=== PATIENT | female | born 1995 | race Caucasian/White ===

== ENCOUNTER 2020-08-11 16:17 | Emergency (ER) | payer MEDICAID, SELFPAY ==
[2020-08-11 17:27] VITALS: BP 109/53; PULSE 80; RESP 16; TEMP 36.8; O2SAT 98; BMI 29.2
--- NOTE | 2020-08-11 21:39 | ED_ITS ---
HPI - Female Genitourinary General Chief complaint: Abdominal Pain Stated complaint: ABD PAIN Time Seen by Provider: 08/11/20 21:09 Source: patient Mode of arrival: ambulatory Limitations: no limitations History of Present Illness HPI Narrative: This is a 25-year-old female who presents with 5 days of left lower pelvic/ quadrant abdominal discomfort that is nonradiating constant and sharp. She denies any alleviating or exacerbating maneuvers, denies fevers, chills, nausea, vomiting, diarrhea, urinary pain/burning/frequency, or vaginal discharge. She states she had an IUD placed approximately 5 years ago in [place] and was evaluated by her primary care provider today who stated that she was unable to find the strings of the IUD. Patient states she has not had a menstrual period since placement of the IUD but is sexually active. Related Data Allergies Allergy/AdvReac Type Severity Reaction Status Date / Time No Known Allergies Allergy Unverified 06/23/20 16:18 [No Known Allergies*] Review of Systems Review of Systems: Pertinent positives and negatives as stated in HPI and 10 point review of systems is otherwise negative. PMFSH Past Medical History Source: nursing notes reviewed Social History Social History Alcohol intake: never Smoking Status: Never smoker Use of substances other than those prescribed or required for medical reasons: No Advance Directives: No Advance Directives Information Provided: Yes Physical Exam Vital Signs: Vital Signs: Last Vital Signs Temp 98.2 F 08/11/20 17:27 Pulse 80 08/11/20 17:27 Resp 16 08/11/20 17:27 BP 109/53 L 08/11/20 17:27 Pulse Ox 98 08/11/20 17:27 Body Mass Index 29.2 VITAL SIGNS: Reviewed. GENERAL: Well developed, well nourished, in no acute distress. HEAD: Normocephalic/atraumatic, EYES: PERRLA, EOMI intact without pain, no nystagmus/pallor/icterus noted EARS: Ext canals without abnormality, TMs non-bulging and non-erythematous NOSE: Nares patent bilateral OROPHARYNX: no oral lesions noted, posterior pharynx clear and non-erythematous without noted tonsillar enlargement/erythema/exudates NECK: Supple, no adenopathy LUNGS: Normal breath sounds. No adventitious sounds or accessory muscle use. SpO2<98> CARDIOVASCULAR: Regular rate and rhythm without noted murmurs, no JVD or lower extremity edema. ABDOMEN: Soft, non-tender, non-distended with bowel sounds. No rigidity. No guarding. No palpable masses or hernias noted MUSCULOSKELETAL: No tenderness, deformities, or effusions noted on gross inspection. EXTREMITIES: No cyanosis, clubbing or edema. SKIN: Inspection of the skin reveals no rashes, ulcerations, jaundice, pallor, or petechiae. NEUROLOGIC: Alert and oriented x 4. Strength and sensation to light touch were grossly intact x 4. Course Course Course Narrative: This is a 25-year-old female with history and clinical presentation suggestive of possible renal colic, ovarian torsion, ovarian cyst, UTI, ectopic . On review of all investigations although there is mild leukocytosis of unclear significance there are no other acute abnormalities on either imaging or lab work, urinalysis to explain patient's presenting symptoms to include no history of cough or shortness of breath. All results and findings were discussed with the patient at bedside and she was encouraged to follow up with her primary care provider 1st thing in the morning for further evaluation. MDM - Female Genitourinary Lab Data Result diagrams: 08/11/20 22:03 08/11/20 22:47 Labs: Lab Results 08/11/20 08/11/20 08/11/20 Range/Units 22:03 22:03 22:47 WBC 13.6 H (4.8-10.8) X10*3/uL RBC 4.89 (4.20-5.50) X10*6/uL Hgb 13.3 (12.0-16.0) g/dl Hct 41.3 (37-47) % MCV 84.5 (80-98) fL MCH 27.2 (27.0-33.0) pg MCHC 32.2 (31.0-35.0) g/dl RDW 13.3 (11.0-16.0) % Plt Count 243 (160-400) X10*3/uL MPV 11.8 (9.4-12.3) fL Immature Gran % (Auto) 0.4 (0.0-0.4) % Neut % (Auto) 52.5 (45-73) % Lymph % (Auto) 39.5 (20-40) % [place] % (Auto) 4.3 (2-11) % Eos % (Auto) 2.7 (0-4) % Baso % (Auto) 0.6 (0-2) % Lymph # (Auto) 5.4 H (1.2-4.9) X10*3/uL [place] # (Auto) 0.6 (0.1-1.2) X10*3/uL Eos # (Auto) 0.4 (0.0-0.4) X10*3/uL Baso # (Auto) 0.1 (0.0-0.2) X10*3/uL Abs Immat Gran (auto) 0.06 H (0.00-0.03) X10*3/uL Absolute Neuts (auto) 7.2 (2.0-8.3) X10*3/uL Absolute Nucleated RBC 0.000 (0.0-0.012) X10*3/uL Nucleated RBC % (auto) 0.0 (0.0-0.2) /100WBC Sodium Cancelled 139 Potassium Cancelled 3.7 Chloride Cancelled 106 Carbon Dioxide Cancelled 24 Anion Gap Cancelled 13 BUN Cancelled 15 Creatinine Cancelled 0.73 Estim Creat Clear Calc Cancelled 121.8 Estimated GFR Cancelled > 60 Random Glucose Cancelled 76 Calcium Cancelled 8.6 Total Bilirubin Cancelled AST Cancelled ALT Cancelled Alkaline Phosphatase Cancelled Total Protein Cancelled Albumin Cancelled Urine Color Urine Appearance Urine pH (5.0-8.0) Ur Specific [place] (1.005-1.025) Urine Protein (NEG-TRACE) MG/DL Urine Glucose (UA) (NEG) MG/DL Urine Ketones (NEG) MG/DL Urine Blood (NEG) Urine Nitrite (NEG) Ur Leukocyte Esterase (NEG) Urine Test (NEGATIVE) 08/11/20 Range/Units 22:50 WBC (4.8-10.8) X10*3/uL RBC (4.20-5.50) X10*6/uL Hgb (12.0-16.0) g/dl Hct (37-47) % MCV (80-98) fL MCH (27.0-33.0) pg MCHC (31.0-35.0) g/dl RDW (11.0-16.0) % Plt Count (160-400) X10*3/uL MPV (9.4-12.3) fL Immature Gran % (Auto) (0.0-0.4) % Neut % (Auto) (45-73) % Lymph % (Auto) (20-40) % [place] % (Auto) (2-11) % Eos % (Auto) (0-4) % Baso % (Auto) (0-2) % Lymph # (Auto) (1.2-4.9) X10*3/uL [place] # (Auto) (0.1-1.2) X10*3/uL Eos # (Auto) (0.0-0.4) X10*3/uL Baso # (Auto) (0.0-0.2) X10*3/uL Abs Immat Gran (auto) (0.00-0.03) X10*3/uL Absolute Neuts (auto) (2.0-8.3) X10*3/uL Absolute Nucleated RBC (0.0-0.012) X10*3/uL Nucleated RBC % (auto) (0.0-0.2) /100WBC Sodium Potassium Chloride Carbon Dioxide Anion Gap BUN Creatinine Estim Creat Clear Calc Estimated GFR Random Glucose Calcium Total Bilirubin AST ALT Alkaline Phosphatase Total Protein Albumin Urine Color YELLOW Urine Appearance CLEAR Urine pH 6.5 (5.0-8.0) Ur Specific [place] 1.025 (1.005-1.025) Urine Protein NEG (NEG-TRACE) MG/DL Urine Glucose (UA) NEG (NEG) MG/DL Urine Ketones NEG (NEG) MG/DL Urine Blood NEG (NEG) Urine Nitrite NEG (NEG) Ur Leukocyte Esterase NEG (NEG) Urine Test NEGATIVE (NEGATIVE) Discharge Plan Discharge Clinical Impression: Abdominal discomfort Patient Disposition: Home, Self-Care Instructions: Kenneth (ED), Abdominal Pain (ED) Additional Instructions: 1. Tylenol 1000 mg, orally, every 6 hours as needed for pain control. Do not exceed 4000 mg within 24 hours. 2. Ibuprofen 400 mg, orally with milk or food, every 6 hours as needed for pain control. 3. Follow-up with the office of your primary care provider this morning for f urther workup and evaluation. The patient and/or family acknowledge understanding of results (as applicable), diagnosis, treatment plan, need for follow up, and symptoms that should prompt a return to the emergency room. Referrals: Physician,Unknown [Primary Care Provider] - 2 days ( For further evaluation your left lower quadrant / pelvic pain as there were no acute findings today in the emergency department)
[2020-08-11 22:09] LABS: MANUAL DIFF FLAG NO; Red Cell Distribution Width 13.3 % (11.0-16.0); SCAN SMEAR FLAG 1; WBC ABN SCTR 1
[2020-08-11 22:12] LABS: Basophils Absolute Auto 0.1 X10*3/uL (0.0-0.2); Basophils Percent Auto 0.6 % (0-2); Eosinophils Absolute Auto 0.4 X10*3/uL (0.0-0.4); Eosinophils Percent Auto 2.7 % (0-4); Hematocrit 41.3 % (37-47); Hemoglobin 13.3 g/dl (12.0-16.0); Imm Gran Abs Auto 0.06 X10*3/uL (0.00-0.03); Imm Gran Pct Auto 0.4 % (0.0-0.4); Lymphocytes Absolute Auto 5.4 X10*3/uL (1.2-4.9); Lymphocytes Percent Auto 39.5 % (20-40); Mean Corpuscular HGB Conc 32.2 g/dl (31.0-35.0); Mean Corpuscular Hemoglobin 27.2 pg (27.0-33.0); Mean Corpuscular Volume 84.5 fL (80-98); Mean Platelet Volume 11.8 fL (9.4-12.3); Monocytes Absolute Auto 0.6 X10*3/uL (0.1-1.2); Monocytes Percent Auto 4.3 % (2-11); Neutrophils Absolute Auto 7.2 X10*3/uL (2.0-8.3); Neutrophils Percent Auto 52.5 % (45-73); Platelet Count 243 X10*3/uL (160-400); Red Blood Count 4.89 X10*6/uL (4.20-5.50)
[2020-08-11] MEDS: Acetaminophen 325 MG TABLET 975 MG PO (22:18)
[2020-08-11 22:21] LABS: WBC ABN SCTR FOR CBC 1
[2020-08-11 22:23] LABS: White Blood Count 13.6 X10*3/uL (4.8-10.8)
[2020-08-11 23:04] LABS: Glucose Urine UA NEG (NEG); Leukocyte Esterase Urine NEG (NEG); Nitrite Urine NEG (NEG); PH 6.5 (5.0-8.0); Specific Gravity - Urine 1.025 (1.005-1.025); Urine Blood NEG (NEG); Urine Ketones NEG (NEG); Urine Protein NEG (NEG-TRACE)
[2020-08-11 23:06] LABS: Appearance Urine CLEAR; Color Urine YELLOW; UPreg QC Valid YES; Urine Pregnancy NEGATIVE (NEGATIVE)
[2020-08-11 23:12] LABS: Anion Gap 13 (12-20); Blood Urea Nitrogen 15 mg/dL (9-16); Calcium 8.6 mg/dL (8.4-10.2); Carbon Dioxide 24 mmol/L (22-29); Chloride 106 mmol/L (96-108); Creatinine Clr Calc Pharmacy 121.8; Estimated Glomerular Filt Rate > 60; Glucose Random 76 mg/dL (60-115); Potassium 3.7 mmol/l (3.3-5.1); Sodium 139 mmol/L (135-145)
--- NOTE | 2020-08-12 | US_ITS ---
EXAMINATIONS: ULTRASOUND PELVIC, COMPLETE AND DOPPLER INTERROGATION CLINICAL INFORMATION: Left-sided pain. COMPARISON: None. TECHNIQUE: Transabdominal and transvaginal imaging was performed. Transvaginal imaging was performed for further evaluation of the endometrium and adnexa. Doppler interrogation spectral analysis was performed. FINDINGS: The uterus is of normal size and echogenicity measuring 7.9 x 4.4 x 4.9 cm. A regular homogeneous endometrium is identified measuring 0.3 cm. IUD is in place in appropriate position. Both ovaries are of normal size and echogenicity. The right measures 4.4 x 3.0 x 3.1 cm for a volume of 21.4 cc. This measurement includes an approximately 2.2 cm simple right ovarian cyst. The left measures 3.1 x 1.9 x 2.3 cm for a volume of 7.1 cc. Normal arterial and venous blood flow is present bilaterally. There is a mzdai-no-dmsdfwhm amount of pelvic free fluid. US/US transvaginal IMPRESSION: No evidence for ovarian torsion. IUD in appropriate position. 2.2 cm simple right ovarian cyst.
--- NOTE | 2020-08-12 | US_ITS ---
EXAMINATIONS: ULTRASOUND PELVIC, COMPLETE AND DOPPLER INTERROGATION CLINICAL INFORMATION: Left-sided pain. COMPARISON: None. TECHNIQUE: Transabdominal and transvaginal imaging was performed. Transvaginal imaging was performed for further evaluation of the endometrium and adnexa. Doppler interrogation spectral analysis was performed. FINDINGS: The uterus is of normal size and echogenicity measuring 7.9 x 4.4 x 4.9 cm. A regular homogeneous endometrium is identified measuring 0.3 cm. IUD is in place in appropriate position. Both ovaries are of normal size and echogenicity. The right measures 4.4 x 3.0 x 3.1 cm for a volume of 21.4 cc. This measurement includes an approximately 2.2 cm simple right ovarian cyst. The left measures 3.1 x 1.9 x 2.3 cm for a volume of 7.1 cc. Normal arterial and venous blood flow is present bilaterally. There is a jzarw-ew-dhduourw amount of pelvic free fluid. US/US pelvic ovarian doppler IMPRESSION: No evidence for ovarian torsion. IUD in appropriate position. 2.2 cm simple right ovarian cyst.
--- NOTE | 2020-08-12 | US_ITS ---
EXAMINATIONS: ULTRASOUND PELVIC, COMPLETE AND DOPPLER INTERROGATION CLINICAL INFORMATION: Left-sided pain. COMPARISON: None. TECHNIQUE: Transabdominal and transvaginal imaging was performed. Transvaginal imaging was performed for further evaluation of the endometrium and adnexa. Doppler interrogation spectral analysis was performed. FINDINGS: The uterus is of normal size and echogenicity measuring 7.9 x 4.4 x 4.9 cm. A regular homogeneous endometrium is identified measuring 0.3 cm. IUD is in place in appropriate position. Both ovaries are of normal size and echogenicity. The right measures 4.4 x 3.0 x 3.1 cm for a volume of 21.4 cc. This measurement includes an approximately 2.2 cm simple right ovarian cyst. The left measures 3.1 x 1.9 x 2.3 cm for a volume of 7.1 cc. Normal arterial and venous blood flow is present bilaterally. There is a ddeyt-jy-hwrmhwzh amount of pelvic free fluid. US/US pelvic complete IMPRESSION: No evidence for ovarian torsion. IUD in appropriate position. 2.2 cm simple right ovarian cyst.
--- NOTE | 2020-08-12 00:15 | PC.NURSE ---
pt off to imaging at this time
[2020-08-12 01:50] VITALS: BP 113/80; PULSE 73; RESP 16; O2SAT 99
== END 2020-08-12 01:52 | disposition home or self-care (01) ==
PROVIDERS: Emergency Provider Student in an Organized Health Care Education/Training Program
DX: R10.2 Pelvic and perineal pain (principal); R10.9 Unspecified abdominal pain; T83.9XXA Unspecified complication of genitourinary prosthetic device, implant and graft, initial encounter; Y76.2 Prosthetic and other implants, materials and accessory obstetric and gynecological devices associated with adverse incidents; Y92.9 Unspecified place or not applicable
CPT/HCPCS: 36415; 76830; 76856; 80048; 81003; 81025; 85025; 93975; 99284

== ENCOUNTER 2020-09-23 13:27 | Outpatient (REF) | payer MEDICAID, SELFPAY | END 2020-09-23 13:28 | disposition home or self-care (01) | LOC: HO.LAB 13:27 | PROVIDERS: Visit Provider Internal Medicine | DX: Z20.828 Contact with and (suspected) exposure to other viral communicable diseases (principal) | CPT/HCPCS: C9803; U0003 ==

== ENCOUNTER → 2021-02-16 11:20 | Outpatient (BNVA) | payer MEDICAID, SELFPAY | PROVIDERS: Visit Provider Advanced Practice Midwife ==

== ENCOUNTER 2021-02-22 10:04 | Outpatient (REF) | payer MEDICAID, SELFPAY ==
[2021-02-23 05:52] LABS: CT PCR NOT DETECTED (Not Detect.); NG PCR NOT DETECTED (Not Detect.)
== END 2021-02-22 10:05 | disposition home or self-care (01) ==
LOC: HO.LAB 10:04
PROVIDERS: Visit Provider Advanced Practice Midwife
DX: Z30.432 Encounter for removal of intrauterine contraceptive device (principal); R10.2 Pelvic and perineal pain
CPT/HCPCS: 58301; 87491; 87591

== ENCOUNTER 2021-04-04 14:18 | Outpatient (REF) | payer MEDICAID, SELFPAY ==
--- NOTE | ~2021-04-04 | US_ITS ---
EXAMINATION: US PELVIS AND TRANSVAGINAL CLINICAL INFORMATION: Pelvic and perineal pain. IUD removed one month ago COMPARISON: None TECHNIQUE: Transabdominal and transvaginal imaging of pelvis is performed. FINDINGS: The uterus is anteverted and anteflexed measuring 8.8 cm in length, 2.7 cm in AP and 4.9 cm in transverse dimension. Endometrial thickness is 0.1 cm. Trace fluid in the endometrial canal with a few echogenic foci posterior to the endometrium measuring 0.2 x 0.1 x 0.1 cm. Right ovary measures 3.2 x 2.7 x 2.0 cm and volume 9.1 mL. It appears unremarkable. Previously, the right ovary measured 4.4 x 3.0 x 3.1 cm. Left ovary measures 3.2 x 2.2 x 1.5 cm and volume 5.5 mL. It appears unremarkable. Previously, the left ovary measured 3.1 x 1.9 x 2.3 cm. There is mild fullness of left adnexa. There is no free fluid in the cul-de-sac. US/US pelvic and transvaginal IMPRESSION: Trace fluid within the endometrial canal with echogenic foci posterior to endometrium. Mild left adnexal fullness. Ovaries are unremarkable.
== END 2021-04-04 14:19 | disposition home or self-care (01) ==
LOC: HO.US 14:18
PROVIDERS: Visit Provider Advanced Practice Midwife
DX: R10.2 Pelvic and perineal pain (principal)
CPT/HCPCS: 76830; 76856

== ENCOUNTER → 2021-04-17 12:23 | Outpatient (BNVA) | payer MEDICAID, SELFPAY | PROVIDERS: Visit Provider Advanced Practice Midwife ==

== ENCOUNTER 2021-04-24 14:09 | Outpatient (REF) | payer MEDICAID, SELFPAY ==
[2021-04-25 09:53] LABS: BV Int Neg Control Negative (Negative); BV Int Pos Control Positive (Positive)
== END 2021-04-24 14:10 | disposition home or self-care (01) ==
LOC: HO.LAB 14:09
PROVIDERS: Visit Provider Advanced Practice Midwife
DX: Z01.411 Encounter for gynecological examination (general) (routine) with abnormal findings (principal); R10.2 Pelvic and perineal pain; N89.8 Other specified noninflammatory disorders of vagina
CPT/HCPCS: 87480; 87510; 87660; 88142

== ENCOUNTER → 2021-08-30 13:09 | Outpatient (BNVA) | payer MEDICAID, SELFPAY | PROVIDERS: Visit Provider Advanced Practice Midwife | DX: Z32.01 Encounter for pregnancy test, result positive (principal); Z3A.00 Weeks of gestation of pregnancy not specified | CPT/HCPCS: 81025; 99212 ==

== ENCOUNTER 2021-09-08 09:56 | Outpatient (REF) | payer MEDICAID, SELFPAY ==
--- NOTE | ~2021-09-08 | US_ITS ---
EXAMINATION: US OBSTETRICAL ULTRASOUND CLINICAL INFORMATION: Encounter for positive test. Check size and dates. COMPARISON: None. LMP: 06/21/2021. Gestational age by maternal dates is by dates 11 weeks 2 days. Estimated date of delivery by maternal dates is 03/28/2022. TECHNIQUE: Transabdominal and transvaginal first trimester OB ultrasound FINDINGS: There is a single intrauterine gestational sac with visible yolk sac, embryo/fetus, and cardiac activity. There is no significant subchorionic hemorrhage or hematoma. HR: 142 beats per minute. CRL (crown rump length): 1.1 cm (7 weeks 2 days +/- 4 days). TOM (estimated date of delivery): 04/25/2022 +/- 4 days. MATERNAL ADNEXA: The right maternal ovary measures 3.4 x 2.1 x 2.5 cm. There is a 1.6 x 1.4 x 1.2 cm complex ovarian cyst probably representing a corpus luteum. The left maternal ovary measures 2.6 x 1.5 x 1.6 cm. There is a small amount of fluid in the pelvis. US/US OB pelvic and transvaginal IMPRESSION: 1. Single intrauterine gestation with ultrasound gestational age of 7 weeks 2 days +/- 4 days. 2. Estimated date of delivery is 04/25/2022 +/- 4 days.
== END 2021-09-08 09:57 | disposition home or self-care (01) ==
LOC: HO.US 09:56
PROVIDERS: Visit Provider Advanced Practice Midwife
DX: Z34.90 Encounter for supervision of normal pregnancy, unspecified, unspecified trimester (principal)
CPT/HCPCS: 76801; 76817

== ENCOUNTER → 2021-10-17 10:07 | Outpatient (BNVA) | payer MEDICAID, SELFPAY | PROVIDERS: Visit Provider Advanced Practice Midwife | DX: O21.9 Vomiting of pregnancy, unspecified (principal); Z3A.12 12 weeks gestation of pregnancy; Z83.3 Family history of diabetes mellitus | CPT/HCPCS: 99212 ==

== ENCOUNTER 2021-10-20 10:46 | Outpatient (REF) | payer MEDICAID, SELFPAY ==
--- NOTE | ~2021-10-20 | US_ITS ---
EXAMINATION: OBSTETRICAL ULTRASOUND, FIRST TRIMESTER HISTORY: 26-year-old at 17.2 weeks of gestation NT screening COMPARISON: 09/08/2021 TECHNIQUE: Real time transabdominal imaging with color and M-mode Doppler. FINDINGS: A single, live IUP CRL of 72.2 mm c/w 13.3wks is noted. Heart Rate: 150 beats per minute. Normal yolk sac seen. NT was 1.6.mm. NB Present The embryo appears sonographically wnl for this GA. Right ovary is within normal limits. The left could not be visualized GESTATIONAL AGE: 1. Established GA: 13.2 wks 2. GA from [facility]: 13.3 wks ESTIMATED DATE OF DELIVERY: 1. Established TOM: 04/25/2022 2. TOM from [facility]: 04/24/2022 US/US OB 1T nuc measure IMPRESSION: 1. A single live IUP 2. Size equals dates 3. Normal NT MFM Consultation: I reviewed the ultrasound findings along with significance of NT measurement. The NT of less than 3mm is generally reassuring. However, the sensitivity for T21 detection is only 60%. I reviewed the availability of serum aneuploidy screening which includes cell-free DNA and placental protein based tests. I discussed the sensitivity, false-positive rate, and other limitations associated with each test. I also reviewed the availability of invasive diagnostic tests that are associated small but definite risk of miscarriage. We also reviewed the differences between screening tests and diagnostic tests. After our discussion, she opted for the First trimester screening that is based on cell-free DNA or non-invasive testing (NIPT). The result will be faxed to your office in approximately 7 days. A follow up at 18 weeks for survey has been scheduled. Thank you very much for this referral. Total time 30 minutes. The time spent was devoted to counseling the patient about the disease and diagnosis, coordinating care including reviewing her records, pertinent lab data and studies, as well as discussing diagnostic evaluation and workup, plan therapeutic interventions and future disposition of care. This includes any additional research needed to obtain further information in formulating the plan of care of this patient. This note was generated with a voice recognition program. Please excuse any errors which may have been overlooked during my review of this note. Sometimes these errors may affect the content or meaning of a given sentence.
== END 2021-10-20 10:47 | disposition home or self-care (01) ==
LOC: HO.US 10:46
PROVIDERS: PCP Internal Medicine; Visit Provider Advanced Practice Midwife
DX: Z34.91 Encounter for supervision of normal pregnancy, unspecified, first trimester (principal); Z3A.13 13 weeks gestation of pregnancy
CPT/HCPCS: 76813

== ENCOUNTER 2021-12-04 13:17 | Outpatient (REF) | payer MEDICAID, SELFPAY ==
[2021-12-05 05:16] LABS: CT PCR NOT DETECTED (Not Detect.); NG PCR NOT DETECTED (Not Detect.)
[2021-12-05 09:43] LABS: BV Int Neg Control Negative (Negative); BV Int Pos Control Positive (Positive)
== END 2021-12-04 13:18 | disposition home or self-care (01) ==
LOC: HO.LAB 13:17
PROVIDERS: Visit Provider Advanced Practice Midwife
DX: Z34.92 Encounter for supervision of normal pregnancy, unspecified, second trimester (principal); Z3A.19 19 weeks gestation of pregnancy
CPT/HCPCS: 87480; 87491; 87510; 87591; 87660; 99212

== ENCOUNTER 2021-12-05 10:24 | Outpatient (REF) | payer MEDICAID, SELFPAY ==
[2021-12-05 12:26] LABS: Hematocrit 33.9 % (37.0-47.0); Hemoglobin 10.9 g/dl (12.0-16.0); Mean Corpuscular HGB Conc 32.2 g/dl (31.0-35.0); Mean Corpuscular Hemoglobin 26.8 pg (27.0-33.0); Mean Corpuscular Volume 83.3 fL (80.0-98.0); Platelet Count 234 X10*3/uL (160-400); Red Blood Count 4.07 X10*6/uL (4.20-5.50); Red Cell Distribution Width 14.4 % (11.0-16.0); White Blood Count 9.3 X10*3/uL (4.8-10.8)
[2021-12-05 13:09] LABS: Glucose 1 Hour PP 50gm Dose 133 mg/dL (60-140)
[2021-12-05 14:18] LABS: Amphetamine Screen Urine Not Detected (Not Detect); Barbiturates, Urine Not Detected (Not Detect); Benzodiazepines Screen Urine Not Detected (Not Detect); Cannabinoid Screen Urine POSITIVE (Not Detect); Cocaine Screen Urine Not Detected (Not Detect); Fentanyl, urine Not Detected (Not Detect); Opiate Screen Urine Not Detected (Not Detect); Phencyclidine Screen Urine Not Detected (Not Detect)
[2021-12-06 03:39] LABS: Syphilis Screen Nonreactive (Nonreactive)
[2021-12-06 03:57] LABS: ~HepC Num1 0.13 S/CO (0.00-0.79); ~Hepatitis C Antibody Nonreactive (Nonreactive)
[2021-12-06 04:09] LABS: HBsAGNum1 0.19 S/CO (0.00-0.99); HIV AB/AG Nonreactive (Nonreactive); HIV Num 1 0.13 S/CO (0.00-0.99); Hepatitis B Surface Antigen Negative (Negative)
[2021-12-06 09:06] LABS: Rubella IgG Antibody 1.61 Index
== END 2021-12-05 10:25 | disposition home or self-care (01) ==
LOC: HO.LAB 10:24
PROVIDERS: Visit Provider Advanced Practice Midwife
DX: Z32.01 Encounter for pregnancy test, result positive (principal)
CPT/HCPCS: 80307; 85027; 86762; 86780; 86787; 86803; 86850; 86900; 86901; 87086; 87340; 87389

== ENCOUNTER 2021-12-08 10:31 | Outpatient (REF) | payer MEDICAID, SELFPAY ==
--- NOTE | ~2021-12-08 | US_ITS ---
EXAMINATION: US OBSTETRICAL CLINICAL INFORMATION: 26-year-old at 20.2 weeks of gestation Screening for anomaly COMPARISON: 10/20/2021 TECHNIQUE: Real-time transabdominal ultrasound was performed using C1-5 megahertz transducer. FINDINGS: A single, active, fetus is seen in breech presentation. The placenta is anterior without previa, and the amniotic fluid volume is wnl. MEASUREMENTS: 1. Biparietal Diameter: 5.0 cm; 21.1 wks 2. Occipital Frontal Diameter: 6.8 cm 3. Head Circumference: 18.8 cm; 21.1 wks 4. Abdominal Circumference: 16.1 cm; 21.2 wks 5. Femur Length: 3.5 cm; 21.0 wks 6. Humerus Length: 3.4 cm; 21.6 wks 7. Tibia Length: 3.0 cm; 21.1 wks 8. Ulna Length: 3.2 cm; 22.0 wks 9. Lateral ventricle: 0.7 cm 10. Cerebellum: 2.1 cm; 21.2 wks 11. Cisterna Magna: 0.72 cm 12. Nuchal Fold: 3.9 mm 13. Heart Rate: 132 beats per minute Rt ovary: normal Lt ovary: normal Cervical length 3.1 cm on T/A. GESTATIONAL AGE: 1. Established GA: 20.2 wks 2. GA from [facility]: 21.1 wks ESTIMATED DATE OF DELIVERY: 1. Established TOM: 04/25/2022 2. TOM from [facility]: 04/19/2022 ANATOMY: The visualized anatomy includes but not limited to: 1. Cranium: Normal 2. Intracranial anatomy: cavum septum pellucidi, lateral ventricles, choroid plexus, cerebellum, posterior fossa, third and fourth ventricles. 3. face: orbits, lip/palate, profile, nasal bone 4. Heart: four-chamber view of the heart, ventricular septum, foramen ovale, pulmonary vein, left and right outflow tracts, three-vessel view, 3 vessel trachea view, aortic and ductal arches, situs.. 5. Diaphragm: Normal 6. Abdominal wall: Normal 7. Cord Insertion: Normal 8. Spine: Cervical, thoracic, lumbar, sacral. 9. Stomach: Normal size and shape 10. Right Kidney: Normal 11. Left Kidney: Normal 12. 3 vessel cord: Normal 13. Upper extremity: Open hands, fifth digit. 14. Lower extremity: Tibia, fibula, bilateral feet. 15. Bladder: Normal 16. Genitalia: Male, patient aware US/US OB /maternal detail IMPRESSION: 1. Single, living, intrauterine with appropriate biometry. 2. Normal survey DISCUSSION: I reviewed today's ultrasound findings. We discussed the limitations of ultrasound in diagnosing aneuploidy and other congenital abnormalities. I reviewed the differences between screening test and diagnostic test. Amniocentesis was discussed and declined. She was informed that the baseline incidence of congenital abnormalities is approximately 3-5%. Not all these conditions are diagnosable in utero. RECOMMENDATIONS: 1. Follow-up when necessary Thank you for allowing me to participate in her care. This note was generated with a voice recognition program. Please excuse any errors which may have been overlooked during my review of this note. Sometimes these errors may affect the content or meaning of a given sentence.
== END 2021-12-08 10:32 | disposition home or self-care (01) ==
LOC: HO.US 10:31
PROVIDERS: Visit Provider Advanced Practice Midwife
DX: Z34.92 Encounter for supervision of normal pregnancy, unspecified, second trimester (principal)
CPT/HCPCS: 76811

== ENCOUNTER → 2022-01-01 09:36 | Outpatient (BNVA) | payer MEDICAID, SELFPAY | PROVIDERS: Visit Provider Advanced Practice Midwife | DX: Z34.82 Encounter for supervision of other normal pregnancy, second trimester (principal); Z3A.23 23 weeks gestation of pregnancy | CPT/HCPCS: 81003; 99212 ==

== ENCOUNTER 2022-01-30 12:16 | Outpatient (REF) | payer MEDICAID, SELFPAY ==
[2022-01-30 14:19] LABS: Hematocrit 35.1 % (37.0-47.0); Hemoglobin 11.4 g/dl (12.0-16.0); Mean Corpuscular HGB Conc 32.5 g/dl (31.0-35.0); Mean Corpuscular Hemoglobin 27.3 pg (27.0-33.0); Mean Corpuscular Volume 84.2 fL (80.0-98.0); Mean Platelet Volume 12.1 fL (9.4-12.3); Platelet Count 244 X10*3/uL (160-400); Red Blood Count 4.17 X10*6/uL (4.20-5.50); Red Cell Distribution Width 13.5 % (11.0-16.0); White Blood Count 11.5 X10*3/uL (4.8-10.8)
[2022-01-30 14:37] LABS: Glucose 1 Hour PP 50gm Dose 77 mg/dL (60-140)
[2022-01-31 05:26] LABS: CT PCR NOT DETECTED (Not Detect.); NG PCR NOT DETECTED (Not Detect.)
[2022-01-31 06:12] LABS: Syphilis Screen Nonreactive (Nonreactive)
[2022-01-31 10:52] LABS: BV Int Neg Control Negative (Negative); BV Int Pos Control Positive (Positive)
== END 2022-01-30 12:17 | disposition home or self-care (01) ==
LOC: HO.LAB 12:16
PROVIDERS: Visit Provider Advanced Practice Midwife
DX: Z01.419 Encounter for gynecological examination (general) (routine) without abnormal findings (principal); O26.899 Other specified pregnancy related conditions, unspecified trimester; R10.9 Unspecified abdominal pain; Z79.899 Other long term (current) drug therapy; Z20.2 Contact with and (suspected) exposure to infections with a predominantly sexual mode of transmission
CPT/HCPCS: 36415; 81003; 85027; 86780; 87480; 87491; 87510; 87591; 87660; 99212

== ENCOUNTER 2022-02-06 13:45 | Outpatient (REF) | payer MEDICAID, SELFPAY ==
[2022-02-06 14:26] LABS: Hematocrit 33.8 % (37.0-47.0); Hemoglobin 10.9 g/dl (12.0-16.0); Mean Corpuscular HGB Conc 32.2 g/dl (31.0-35.0); Mean Corpuscular Hemoglobin 26.9 pg (27.0-33.0); Mean Corpuscular Volume 83.5 fL (80.0-98.0); Mean Platelet Volume 12.2 fL (9.4-12.3); Platelet Count 243 X10*3/uL (160-400); Red Blood Count 4.05 X10*6/uL (4.20-5.50); Red Cell Distribution Width 13.5 % (11.0-16.0)
== END 2022-02-06 13:46 | disposition home or self-care (01) ==
LOC: HO.LAB 13:45
PROVIDERS: Visit Provider Advanced Practice Midwife
DX: O26.899 Other specified pregnancy related conditions, unspecified trimester (principal); R10.9 Unspecified abdominal pain
CPT/HCPCS: 36415; 85027; 87086

== ENCOUNTER → 2022-02-20 09:36 | Outpatient (BNVA) | payer MEDICAID, SELFPAY | PROVIDERS: Visit Provider Advanced Practice Midwife | DX: O99.013 Anemia complicating pregnancy, third trimester (principal); D64.9 Anemia, unspecified; O12.03 Gestational edema, third trimester; R60.0 Localized edema; Z3A.30 30 weeks gestation of pregnancy | CPT/HCPCS: 81003; 99212 ==

== ENCOUNTER → 2022-03-09 08:43 | Outpatient (BNVA) | payer MEDICAID, SELFPAY | PROVIDERS: Visit Provider Advanced Practice Midwife | DX: O99.013 Anemia complicating pregnancy, third trimester (principal); D64.9 Anemia, unspecified; Z3A.33 33 weeks gestation of pregnancy | CPT/HCPCS: 99212 ==

== ENCOUNTER → 2022-03-23 08:54 | Outpatient (BNVA) | payer MEDICAID, SELFPAY | PROVIDERS: Visit Provider Advanced Practice Midwife | DX: O26.893 Other specified pregnancy related conditions, third trimester (principal); R60.0 Localized edema; R53.83 Other fatigue; Z3A.35 35 weeks gestation of pregnancy | CPT/HCPCS: 99212 ==

== ENCOUNTER 2022-03-30 13:30 | Outpatient (REF) | payer MEDICAID, SELFPAY | END 2022-03-30 13:31 | disposition home or self-care (01) | LOC: HO.LAB 13:30 | PROVIDERS: Visit Provider Advanced Practice Midwife | DX: Z34.93 Encounter for supervision of normal pregnancy, unspecified, third trimester (principal); Z3A.36 36 weeks gestation of pregnancy | CPT/HCPCS: 81002; 87081; 87147; 99212 ==

== ENCOUNTER → 2022-04-18 11:45 | Outpatient (BNVA) | payer MEDICAID, SELFPAY | PROVIDERS: Visit Provider Advanced Practice Midwife | DX: Z39.2 Encounter for routine postpartum follow-up (principal) | CPT/HCPCS: 99212 ==

== ENCOUNTER → 2022-05-16 15:11 | Outpatient (BNVA) | payer MEDICAID, SELFPAY | PROVIDERS: Visit Provider Advanced Practice Midwife | DX: Z39.2 Encounter for routine postpartum follow-up (principal) | CPT/HCPCS: 99212 ==

== ENCOUNTER → 2022-09-12 13:09 | Outpatient (BNVA) | payer MEDICAID, SELFPAY | PROVIDERS: Visit Provider Advanced Practice Midwife | DX: Z30.430 Encounter for insertion of intrauterine contraceptive device (principal); Z32.02 Encounter for pregnancy test, result negative | CPT/HCPCS: 58300; 81025; 99212; J7298 ==

== ENCOUNTER → 2022-10-25 11:41 | Outpatient (BNVA) | payer MEDICAID, SELFPAY | PROVIDERS: Visit Provider Advanced Practice Midwife | DX: Z30.431 Encounter for routine checking of intrauterine contraceptive device (principal); R53.1 Weakness; R25.2 Cramp and spasm | CPT/HCPCS: 99212 ==

== ENCOUNTER 2022-11-15 08:20 | Outpatient (REF) | payer MEDICAID, SELFPAY ==
--- NOTE | ~2022-11-15 | XR_ITS ---
EXAMINATION: XR foot LT min 3V, XR foot RT min 3V CLINICAL INFORMATION: Rheumatoid arthritis COMPARISON: None TECHNIQUE: 3 views of the bilateral feet FINDINGS: RIGHT FOOT: No fracture or dislocation. Joint spaces are maintained. No cortical erosion. No joint effusion. Soft tissues are unremarkable. LEFT FOOT: No fracture or dislocation. Joint spaces are maintained. No cortical erosion. No joint effusion. Soft tissues are unremarkable. XR/XR foot LT min 3V IMPRESSION: No acute osseous abnormality or cortical erosions to suggest erosive arthropathy.
--- NOTE | ~2022-11-15 | XR_ITS ---
EXAMINATION: XR hand wrist LT, XR hand wrist RT CLINICAL INFORMATION: Reason for Exam M06.9 - Rheumatoid arthritis, unspecified COMPARISON: 08/25/2018 TECHNIQUE: 3 views of the bilateral wrists XR/XR hand wrist RT FINDINGS/IMPRESSION: * No acute fracture or dislocation. * Joint spaces are maintained without significant degenerative change. * No soft tissue abnormality.
--- NOTE | ~2022-11-15 | XR_ITS ---
EXAMINATION: XR hand wrist LT, XR hand wrist RT CLINICAL INFORMATION: Reason for Exam M06.9 - Rheumatoid arthritis, unspecified COMPARISON: 08/25/2018 TECHNIQUE: 3 views of the bilateral wrists XR/XR hand wrist LT FINDINGS/IMPRESSION: * No acute fracture or dislocation. * Joint spaces are maintained without significant degenerative change. * No soft tissue abnormality.
--- NOTE | ~2022-11-15 | XR_ITS ---
EXAMINATION: XR foot LT min 3V, XR foot RT min 3V CLINICAL INFORMATION: Rheumatoid arthritis COMPARISON: None TECHNIQUE: 3 views of the bilateral feet FINDINGS: RIGHT FOOT: No fracture or dislocation. Joint spaces are maintained. No cortical erosion. No joint effusion. Soft tissues are unremarkable. LEFT FOOT: No fracture or dislocation. Joint spaces are maintained. No cortical erosion. No joint effusion. Soft tissues are unremarkable. XR/XR foot RT min 3V IMPRESSION: No acute osseous abnormality or cortical erosions to suggest erosive arthropathy.
[2022-11-15 09:49] LABS: MANUAL DIFF FLAG NO
[2022-11-15 10:47] LABS: Appearance Urine Clear; Color Urine Yellow; Glucose Urine UA Negative (Negative); Leukocyte Esterase Urine Negative (Negative); Nitrite Urine Negative (Negative); PH 6.5 (5.0-9.0); Specific Gravity - Urine 1.015 (1.005-1.025); Urine Blood Negative (Negative); Urine Ketones Negative (Negative); Urine Protein Negative (Neg-Trace)
[2022-11-15 10:49] LABS: Bacteria Urine None Seen (None Seen); Hyaline Casts Urine 0-2 /LPF (0-2); RBC Urine 0-2 /HPF (0-2); WBC Urine 0-5 /HPF (0-5)
[2022-11-15 11:38] LABS: Basophils Absolute Auto 0.1 X10*3/uL (0.0-0.2); Basophils Percent Auto 0.8 % (0-2); Eosinophils Absolute Auto 0.2 X10*3/uL (0.0-0.4); Eosinophils Percent Auto 3.3 % (0-4); Hematocrit 34.9 % (37.0-47.0); Imm Gran Abs Auto 0.03 X10*3/uL (0.00-0.03); Imm Gran Pct Auto 0.5 % (0.0-0.4); Lymphocytes Absolute Auto 2.4 X10*3/uL (1.2-4.9); Lymphocytes Percent Auto 36.1 % (20-40); Mean Corpuscular HGB Conc 31.5 g/dl (31.0-35.0); Mean Corpuscular Hemoglobin 26.1 pg (27.0-33.0); Mean Corpuscular Volume 82.7 fL (80.0-98.0); Monocytes Absolute Auto 0.4 X10*3/uL (0.1-1.2); Monocytes Percent Auto 5.9 % (2-11); Neutrophils Absolute Auto 3.5 x10*3/uL (2.0-8.3); Neutrophils Percent Auto 53.4 % (45-73); Platelet Count 271 X10*3/uL (160-400); Red Blood Count 4.22 X10*6/uL (4.20-5.50); Red Cell Distribution Width 19.2 % (11.0-16.0); White Blood Count 6.6 X10*3/uL (4.8-10.8)
[2022-11-15 12:01] LABS: Creatinine Urine 70.37 mg/dL; Total Protein Urine Random < 7 mg/dL (<12)
[2022-11-15 12:09] LABS: Alanine Aminotransferase 12 U/L (0-31); Albumin Level 4.5 g/dL (3.5-5.0); Alkaline Phosphatase 84 U/L (39-117); Anion Gap 13 (12-20); Aspartate Amino Transferase 15 U/L (5-31); Bilirubin Total 0.4 mg/dL (0.0-1.0); Blood Urea Nitrogen 15 mg/dL (9-16); C Reactive Protein 0.18 mg/dL (< or = 0.50); Calcium 9.8 mg/dL (8.4-10.2); Carbon Dioxide 22 mmol/L (22-29); Chloride 107 mmol/L (96-108); Estimated Glomerular Filt Rate > 60; Glucose Random 87 mg/dL (60-115); Potassium 4.3 mmol/L (3.3-5.1); Sodium 138 mmol/L (135-145); Total Protein 7.4 g/dL (6.5-8.0)
[2022-11-15 12:23] LABS: Erythrocyte Sedimentation Rate 14 MM/HR (0-20)
[2022-11-15 13:36] LABS: Rheumatoid Factor < 13.0 IU/mL (<15.0)
[2022-11-16 07:20] LABS: HBS Num1 0.02 mIU/mL (0-7.99); HBsAGNum1 0.27 S/CO (0.00-0.99); Hepatitis A Antibody IgM 0.17 Index (0-0.79); Hepatitis B Core Antibody Nonreactive (Nonreactive); Hepatitis B Surface Antigen Negative (Negative); ~HepC Num1 0.13 S/CO (0.00-0.79); ~Hepatitis A Antibody IgM Nonreactive (Nonreactive); ~Hepatitis B Surface Antibody NONREACTIVE (Nonreactive); ~Hepatitis C Antibody Nonreactive (Nonreactive)
[2022-11-18 19:28] LABS: TS Negative Control Passed; TS Panel A 0; TS Panel B 0; TS Positive Control Passed; TSpotTB Negative (Negative)
[2022-11-19 15:53] LABS: Cyclic Citrullinated Peptide <16 UNITS
[2022-11-19 22:34] LABS: Anti DNA DS Antibody <1 IU/mL; Antibody to SS-A Antigen <1.0 NEG AI (<1.0 NEG); Antibody to SS-B Antigen <1.0 NEG AI (<1.0 NEG); Complement C3 107 mg/dL (83-193); SM/Ribonucleoprotein Ab <1.0 NEG AI (<1.0 NEG); Smith Protein <1.0 NEG AI (<1.0 NEG); Thyroglobulin Antibodies 2 IU/mL (< or = 1); Thyroid Peroxidase Antibodies 522 IU/mL (<9)
[2022-11-19 22:49] LABS: Cardiolipin IgG Ab <2.0 GPL-U/mL; Cardiolipin IgM Ab <2.0 MPL-U/mL
[2022-11-20 15:48] LABS: Anti Nuclear Antibody Screen NEGATIVE (NEGATIVE)
[2022-11-22 10:59] LABS: DNAds, Crithidia Antibody Negative (Negative)
[2022-11-22 22:02] LABS: Beta-2 Glycoprotein IgA <2.0 U/mL (<20.0); Beta-2 Glycoprotein IgG <2.0 U/mL (<20.0); Beta-2 Glycoprotein IgM <2.0 U/mL (<20.0)
[2022-11-23 22:48] LABS: PTT (LAC) Screen 34 sec (<=40)
[2022-11-28 01:39] LABS: Cytosolic 5'nuc 1A Ab IgG 17 Units; Ej Ab <11 SI (<11); HMGCR Ab IgG <2 CU (<20); Jo-1 Ab <11 SI (<11); MDA5 Ab <11 SI (<11); Mi-2 alpha Ab <11 SI (<11); Mi-2 beta Ab <11 SI (<11); NXP-2 (MJ) Ab <11 SI (<11); Oj Ab <11 SI (<11); Pl-12 Ab <11 SI (<11); Pl-7 Ab <11 SI (<11); SRP Ab <11 SI (<11); TIF1 gamma Ab <11 SI (<11)
[2022-11-28 14:18] LABS: Centromere Protein A Ab <11 SI (<11); Centromere Protein B Ab <11 SI (<11); Fibrillarin Ab <11 SI (<11); PM SCL 100 Ab <11 SI (<11); PM SCL 75 Ab <11 SI (<11); RNA Polymerase III RP11 Ab <11 SI (<11); RNA Polymerase III RP155 Ab <11 SI (<11); SCL-70 Extractable Nuclear Ab <11 SI (<11); Th-To Ab <11 SI (<11); U1 SNRNP RNP 70KD <11 SI (<11); U1 SNRNP RNP A <11 SI (<11); U1 SNRNP RNP C <11 SI (<11)
== END 2022-11-15 08:21 | disposition home or self-care (01) ==
LOC: HO.XRAY 08:20
PROVIDERS: PCP Internal Medicine Geriatric Medicine; Visit Provider Student in an Organized Health Care Education/Training Program
DX: M06.9 Rheumatoid arthritis, unspecified (principal); M32.9 Systemic lupus erythematosus, unspecified; M79.641 Pain in right hand; M79.632 Pain in left forearm; M79.631 Pain in right forearm; M25.542 Pain in joints of left hand; M25.50 Pain in unspecified joint; M34.9 Systemic sclerosis, unspecified; E66.9 Obesity, unspecified; L98.8 Other specified disorders of the skin and subcutaneous tissue; D68.61 Antiphospholipid syndrome; G56.00 Carpal tunnel syndrome, unspecified upper limb; G72.9 Myopathy, unspecified; R06.00 Dyspnea, unspecified; E03.9 Hypothyroidism, unspecified; G24.5 Blepharospasm; Z11.59 Encounter for screening for other viral diseases; Z11.7 Encounter for testing for latent tuberculosis infection; Z79.899 Other long term (current) drug therapy
CPT/HCPCS: 36415; 73110; 73130; 73630; 80053; 81001; 82550; 83516; 83520; 84156; 84182; 85025; 85597; 85613; 85652; 85730; 86038; 86039; 86140; 86146; 86147; 86160; 86200; 86225; 86235; 86255; 86376; 86431; 86481; 86704; 86706; 86709; 86800; 86803; 87340; 99202

== ENCOUNTER → 2023-01-11 13:13 | Outpatient (REF) | payer MEDICAID, SELFPAY ==
--- NOTE | 2023-01-11 13:15 | CA_ITS ---
Transthoracic Echocardiogram Patient (Last, First, Middle): Jazlyn Shah, Gender: Female Date of : 1995 Age: 27 Procedure Date: 01/11/2023 Procedure Type: Transthoracic Echocardiogram Location: OP Height: 162.56 cm Weight: 90.27 kg BSA: 1.95 m2 Heart Rate: 63 bpm BP: 116 / 70 mmHg Medical Manager: SB Referring MD: Nirav Deng MD Symptoms: R06.00 - Dyspnea, unspecified Study Quality: Adequate ECG Rhythm: Sinus Conclusions: - Normal study Findings Left Ventricle Normal left ventricular size, thickness, systolic function, and wall motion. The visually estimated ejection fraction is between 55-60%. Diastolic function is normal for age. Right Ventricle Normal right ventricular cavity size and systolic function. Atria Both atria are normal in size. Aortic Valve Normal aortic valve structure and function. There is no aortic valve stenosis. There is no aortic valve regurgitation. Mitral Valve Normal mitral valve structure and function. There is no mitral valve regurgitation. There is no mitral valve stenosis. Pulmonic Valve Normal pulmonic valve structure and function. There is trace pulmonic valve regurgitation. Tricuspid Valve Normal tricuspid valve structure and function. There is trace tricuspid valve regurgitation. Normal right atrial pressure. There is no evidence of pulmonary hypertension. Great Vessels All visible segments of the aorta are normal in size. The visualized portions of the pulmonary artery and branches are normal. Venous The inferior vena cava is normal in size and collapses greater than 50% with inspiration. Pericardium/Pleural There is no evidence of pericardial effusion. Prior Study Comparison No prior study available for comparison. Measurements 2D Linear Measurements IVSd: 0.72 0.6-0.9/0.6-1.0 cm LVIDd: 4.62 3.9-5.3/4.2-5.9 cm LVIDd Index: 2.37 2.4-3.2/2.2-3.1 cm/m2 LVIDs: 3.17 2.0-3.6 cm LVPWd: 0.70 0.7-1.1 cm LA Diam: 3.40 2.7-3.8/3.0-4.0 cm LAIDs Index: 1.74 1.5-2.3 cm/m2 LV Mass: 126.27 67-162/88-224 g LV Mass Index: 64.75 43-95/49-115 g/m2 LVOT Diam: 2.00 3.0+(-)1.3 cm 2D Systolic Function EF 4C: 60.00 >55% Mitral Valve MV Pk E: 1.30 MV PK A: 0.37 MV Decel Time: 164.00 E/A: 3.50 E'Lateral: 15.60 E'Medial: 11.10 E/E' Med: 11.70 E/E' Lat: 8.30 PHT: 48.00 MVA PHT: 4.58 Decel [place]: 7.94 Aortic Valve AoV Pk Teddy: 1.32 AoV Pk Grad: 7.00 DAVID: 2.86 LVOT LVOT Pk Teddy: 1.11 LVOT Mn Teddy: 0.73 LVOT VTI: 0.22 LVOT Pk Grad: 5.00 LVOT Mn Grad: 2.00 LVOT Diam: 2.00 LVOT Area: 3.14 Diastolic Function MV Pk E: 1.30 MV Pk A: 0.37 E/A: 3.50 E'Medial: 11.10 E/E' Med: 11.70 E' Laterial: 15.60 E/E' Lat: 8.30 Right Ventricle TAPSE (mm): 23.40 TVS' Teddy: 16.30 Tricuspid Valve TR Pk Teddy: 1.91 TR Pk Grad: 15.00 RA Press: 3.00 RVSP: 18.00 Great Vessels Aorta Sinus of Valsalva: 2.60 2.0-3.5 cm Ao Asc: 2.50 2.1-3.4 cm Ao Arch: 2.20 Ao Desc: 1.50 Pulmonary Veins Pulm Vein S/D 0.90 Pulmonary Valve PV Pk Teddy: 0.91 Peak PV Grad: 3.00 Updated in Other Vendor System with Status of Final Carlyle Baker MD electronically signed on 01/14/2023 9:43:29 PM with status of Final
== END ==
LOC: HO.CARD 13:13
PROVIDERS: PCP Internal Medicine Geriatric Medicine; Visit Provider Student in an Organized Health Care Education/Training Program
DX: R06.00 Dyspnea, unspecified (principal)
CPT/HCPCS: 93306

== ENCOUNTER 2023-02-13 09:16 | Outpatient (REF) | payer MEDICAID, SELFPAY ==
--- NOTE | 2023-02-13 09:00 | EMG_ITS ---
Please see scanned EMG / Nerve Conduction Report. MTDD
== END 2023-02-13 09:17 | disposition home or self-care (01) ==
LOC: HO.NEURO 09:16
PROVIDERS: PCP Internal Medicine Geriatric Medicine; Visit Provider Student in an Organized Health Care Education/Training Program
DX: M79.641 Pain in right hand (principal); M79.642 Pain in left hand
CPT/HCPCS: 95885; 95913

== ENCOUNTER 2023-09-25 09:11 | Outpatient (AMB) | payer MEDICAID, SELFPAY ==
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
[2023-09-25 09:15] VITALS: BP 100/64; BMI 30.6
== END 2023-09-25 09:53 | disposition home or self-care (01) ==
LOC: HO.HWS 09:11
PROVIDERS: PCP Internal Medicine Geriatric Medicine; Visit Provider Advanced Practice Midwife
DX: R10.2 Pelvic and perineal pain (principal); Z30.431 Encounter for routine checking of intrauterine contraceptive device
CPT/HCPCS: 99214

== ENCOUNTER 2023-09-25 09:11 | Outpatient (REF) | payer MEDICAID, SELFPAY | END 2023-09-25 09:12 | disposition home or self-care (01) | LOC: HO.LAB 09:11 | PROVIDERS: PCP Internal Medicine Geriatric Medicine; Visit Provider Advanced Practice Midwife | DX: Z30.431 Encounter for routine checking of intrauterine contraceptive device (principal); R10.2 Pelvic and perineal pain; R10.32 Left lower quadrant pain | CPT/HCPCS: 0353U; 81003; 81025; 87480; 87510; 87660; 99212 ==

== ENCOUNTER 2023-09-25 09:50 | Outpatient (REF) | payer MEDICAID, SELFPAY ==
[2023-09-26 11:47] LABS: CT PCR NOT DETECTED (Not Detect.); NG PCR NOT DETECTED (Not Detect.)
[2023-09-26 12:17] LABS: BV Int Neg Control Negative (Negative); BV Int Pos Control Positive (Positive)
== END 2023-09-25 09:51 | disposition home or self-care (01) ==
LOC: HO.LNP 09:50
PROVIDERS: Visit Provider Advanced Practice Midwife
DX: R10.2 Pelvic and perineal pain (principal); Z11.3 Encounter for screening for infections with a predominantly sexual mode of transmission
CPT/HCPCS: 0353U; 87480; 87510; 87660

== ENCOUNTER 2023-10-23 10:08 | Outpatient (REF) | payer MEDICAID, SELFPAY ==
[2023-10-23 11:26] LABS: MANUAL DIFF FLAG NO
[2023-10-23 11:32] LABS: Basophils Absolute Auto 0.1 X10*3/uL (0.0-0.2); Basophils Percent Auto 0.6 % (0-2); Eosinophils Absolute Auto 0.2 X10*3/uL (0.0-0.4); Eosinophils Percent Auto 2.4 % (0-4); Hematocrit 40.8 % (37.0-47.0); Hemoglobin 12.7 g/dl (12.0-16.0); Imm Gran Abs Auto 0.03 X10*3/uL (0.00-0.03); Imm Gran Pct Auto 0.4 % (0.0-0.4); Lymphocytes Absolute Auto 2.5 X10*3/uL (1.2-4.9); Lymphocytes Percent Auto 30.6 % (20-40); Mean Corpuscular HGB Conc 31.1 g/dl (31.0-35.0); Mean Corpuscular Hemoglobin 25.9 pg (27.0-33.0); Mean Corpuscular Volume 83.1 fL (80.0-98.0); Mean Platelet Volume 11.7 fL (9.4-12.3); Monocytes Absolute Auto 0.4 X10*3/uL (0.1-1.2); Monocytes Percent Auto 4.6 % (2-11); Neutrophils Percent Auto 61.4 % (45-73); Platelet Count 247 X10*3/uL (160-400); Red Blood Count 4.91 X10*6/uL (4.20-5.50); Red Cell Distribution Width 14.7 % (11.0-16.0); White Blood Count 8.2 X10*3/uL (4.8-10.8)
[2023-10-23 11:34] LABS: Estimated Average Glucose 97 mg/dL
[2023-10-23 12:25] LABS: Alanine Aminotransferase 12 U/L (0-31); Albumin Level 4.3 g/dL (3.5-5.0); Anion Gap 11 (12-20); Aspartate Amino Transferase 14 U/L (5-31); Blood Urea Nitrogen 11 mg/dL (9-16); Calcium 9.6 mg/dL (8.4-10.2); Carbon Dioxide 25 mmol/L (22-29); Chloride 107 mmol/L (96-108); Cholesterol 167 mg/dL (<200); Glucose Random 76 mg/dL (60-115); Potassium 3.8 mmol/L (3.3-5.1); Sodium 139 mmol/L (135-145); Total Protein 7.4 g/dL (6.5-8.0); Triglycerides 54 mg/dL (<150)
[2023-10-23 12:39] LABS: Alkaline Phosphatase 65 U/L (39-117); Bilirubin Direct 0.1 mg/dL (0.0-0.5); Bilirubin Total 0.4 mg/dL (0.0-1.0); Estimated Glomerular Filt Rate > 60; HDL Cholesterol 52 mg/dL (>40); LDL Cholesterol Calculated 105 mg/dL (<100); TSH reflex Free T4 4.48 uIU/mL (0.32-4.0)
[2023-10-23 13:19] LABS: Free T4 (Free Thyroxine) 1.03 ng/dL (0.71-1.85)
== END 2023-10-23 10:09 | disposition home or self-care (01) ==
LOC: HO.HHCL 10:08
PROVIDERS: Visit Provider Internal Medicine
DX: E03.9 Hypothyroidism, unspecified (principal)
CPT/HCPCS: 36415; 80048; 80061; 80076; 83036; 84439; 84443; 85025

== ENCOUNTER 2023-10-24 11:32 | Outpatient (REF) | payer MEDICAID, SELFPAY ==
--- NOTE | ~2023-10-24 | US_ITS ---
EXAMINATION: US PELVIS COMPLETE CLINICAL INFORMATION: Left lower quadrant pain COMPARISON: Pelvic ultrasound 08/12/2020 TECHNIQUE: Transabdominal and transvaginal imaging was performed. FINDINGS: The uterus is of normal size and echogenicity measuring 7.2 x 3.4 x 5.2 cm. A regular homogeneous endometrium is identified measuring 0.3 cm. Uterine device in place. The right ovary measures 4.2 x 2.3 x 2.5 cm for a volume of 15.4 mL which is mildly enlarged with vascular flow present. The left measures 2.8 x 1.7 x 1.9 cm for a volume of 5.3 mL. There is trace physiologic volume simple pelvic free fluid. US/US pelvic and transvaginal IMPRESSION: 1. The right ovary is mildly enlarged with vascular flow present. This is nonspecific and could be seen in the setting of polycystic ovarian syndrome in the appropriate clinical setting. 2. Intrauterine device in place. 3. Trace physiologic volume simple free fluid.
== END 2023-10-24 11:33 | disposition home or self-care (01) ==
LOC: HO.US 11:32
PROVIDERS: PCP Internal Medicine Geriatric Medicine; Visit Provider Advanced Practice Midwife
DX: Z30.431 Encounter for routine checking of intrauterine contraceptive device (principal); R10.2 Pelvic and perineal pain
CPT/HCPCS: 76830; 76856

== ENCOUNTER 2023-11-14 08:36 | Outpatient (AMB) | payer MEDICAID, SELFPAY ==
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
== END 2023-11-14 11:31 | disposition home or self-care (01) ==
PROVIDERS: PCP Internal Medicine Geriatric Medicine; Visit Provider Advanced Practice Midwife
DX: Z71.2 Person consulting for explanation of examination or test findings (principal); R10.32 Left lower quadrant pain
CPT/HCPCS: 99213

== ENCOUNTER → 2023-11-14 08:36 | Outpatient (BNVA) | payer MEDICAID, SELFPAY | PROVIDERS: PCP Internal Medicine Geriatric Medicine; Visit Provider Advanced Practice Midwife ==

== ENCOUNTER 2024-04-28 13:52 | Outpatient (REF) | payer MEDICAID, SELFPAY ==
[2024-04-28 15:59] LABS: MANUAL DIFF FLAG NO
[2024-04-28 16:12] LABS: Basophils Absolute Auto 0.1 X10*3/uL (0.0-0.2); Basophils Percent Auto 0.6 % (0-2); Eosinophils Absolute Auto 0.2 X10*3/uL (0.0-0.4); Eosinophils Percent Auto 2.5 % (0-4); Hematocrit 39.8 % (37.0-47.0); Hemoglobin 12.8 g/dl (12.0-16.0); Imm Gran Abs Auto 0.02 X10*3/uL (0.00-0.03); Imm Gran Pct Auto 0.3 % (0.0-0.4); Lymphocytes Percent Auto 37.6 % (20-40); Mean Corpuscular HGB Conc 32.2 g/dl (31.0-35.0); Mean Corpuscular Hemoglobin 26.7 pg (27.0-33.0); Mean Corpuscular Volume 82.9 fL (80.0-98.0); Mean Platelet Volume 12.5 fL (9.4-12.3); Monocytes Absolute Auto 0.4 X10*3/uL (0.1-1.2); Monocytes Percent Auto 4.9 % (2-11); Neutrophils Absolute Auto 4.3 x10*3/uL (2.0-8.3); Neutrophils Percent Auto 54.1 % (45-73); Platelet Count 233 X10*3/uL (160-400); Red Cell Distribution Width 14.1 % (11.0-16.0); White Blood Count 7.9 X10*3/uL (4.8-10.8)
[2024-04-28 16:26] LABS: Prothrombin Time 12.2 SEC (11.1-13.3)
[2024-04-28 16:45] LABS: Alanine Aminotransferase 14 U/L (0-31); Albumin Level 4.5 g/dL (3.5-5.0); Alkaline Phosphatase 69 U/L (39-117); Anion Gap 13 (12-20); Aspartate Amino Transferase 17 U/L (5-31); Bilirubin Total 0.3 mg/dL (0.0-1.0); Blood Urea Nitrogen 11 mg/dL (9-16); Calcium 9.8 mg/dL (8.4-10.2); Carbon Dioxide 22 mmol/L (22-29); Chloride 107 mmol/L (96-108); Estimated Glomerular Filt Rate > 60; Glucose Random 91 mg/dL (60-115); Sodium 138 mmol/L (135-145); Total Protein 7.6 g/dL (6.5-8.0)
[2024-04-28 17:03] LABS: HCG Quantitative < 2 mIU/mL; TSH reflex Free T4 5.58 uIU/mL (0.32-4.0)
[2024-04-28 20:47] LABS: Free T4 (Free Thyroxine) 0.92 ng/dL (0.71-1.85)
== END 2024-04-28 13:53 | disposition home or self-care (01) ==
LOC: HO.HHCL 13:52
PROVIDERS: Visit Provider Internal Medicine
DX: Z01.818 Encounter for other preprocedural examination (principal)
CPT/HCPCS: 36415; 80053; 84439; 84443; 84702; 85025; 85610; 85730

== ENCOUNTER 2024-11-19 13:45 | Outpatient (REF) | payer MEDICAID, SELFPAY ==
--- NOTE | ~2024-11-19 | XR_ITS ---
EXAMINATION: XR CHEST CLINICAL INFORMATION: cough and CP x one week COMPARISON: 10/23/2019. TECHNIQUE: 2 views of the chest were obtained. FINDINGS: The cardiac, hilar, and mediastinal contours are normal. The lungs are clear bilaterally. There is no pneumothorax or pleural effusion. There is no focal osseous or soft tissue abnormality. There is a mild levoconvex thoracic scoliosis. XR/XR chest 2V IMPRESSION: Normal chest. Electronically signed by: Cj Gonsales MD 11/19/2024 02:24 PM ANDRA GONZALEZ
--- OUTSIDE RECORDS SUMMARY | 2024-11-19 13:50 | XMS_ITS | Encounter Summary ---
Author Organization [employer] Address [address] [facility] [address] [place] [address] Care Team Providers Care Financial Administrative Assistant Name Role Phone Bere Baldwin MD Primary Care Provide r Reason for Visit * Reason Onset Date Comments Appointment Request 07/11/2023 Encounter Details Date Type Department Care Team ([facility] st Contact Info) Description 07/11/2023 Telephone [facility] MEDICINE [address], [place] [phone] Bere Baldwin MD [address] [place] [address] Appointment Request Social History Tobacco Use Types Packs/Day Years Used Date Smoking Tobacco: Never Smokeless Tobacco: Never Alcohol Answer Date Recorded Frequency of Alcohol Consumption Not on file 10/17/2023 Average Number of Drinks Not on file 024 Frequency of Binge Drinking Not on file 10/07 Score 0 10/17/2023 Depression Answer Date Recorded Patient Health Questionnaire-9 Score 0 10/17/2023 Patient Health Questionnaire-9 Score 0 10/17/2023 Last PHQ-9: Questionnaire Data Not on file 0 10/17/2023 Housing Stability Answer Date Recorded What is your housing situation today? I have linda villalobos 10/10/[address] you li ve. Do you have problems with any of the following? None of the above 10/10/2023 Food Insecurity Answer Date Recorded Within the past 12 months, y ou worried that your food would run out before you got money to buy more: Never True 10/10/2023 Within the past 12 months,th e food you bought just didn't last and you didn't have enough money to get more: Never True 01/2024 Transportation Answer Date Recorded In the past 12 months, has l ack of transportation kept you from medical appts, meetings, work or from getting things needed for daily living? No 10/10/2023 Utilities Answer Date Recorded In the past 12 months, has t he electric, gas, oil or water company threatened to shut off services in your home? No 10/10/2023 Depression Answer Date Recorded Patient Health Questionnaire-2 Score 0 10/17/2023 Comments Unknown Sex and Gender Information Value Date Recorded Sex Assigned at Female 08/06/2022 10:15 AM EDT Legal Sex Female 10:15 AM EDT Gender Identity Female 08/06/2022 10:15 AM EDT Sexual Orientation Straight 08/06/2022 10 :15 AM EDT documented as of this encounter Miscellaneous Notes * Telephone Encounter - Jeremy Jones - 07/11/2023 11:54 AM EDT Tc from pt requesting a follow up appt with PCP for thyroid however pt needs a TP Appt from Dr. Strong. Please contact at [phone] documented in this encounter Plan of Treatment Upcoming Encounters Date Type Department Care Team (Late st Contact Info) Description 01/07/2025 3:15 PM EDT Office Visit [facility] MEDICINE [address] [place] [phone] Bere Baldwin MD [address] [place] [address] documented as of this encounter Visit Diagnoses Not on filedocumented in this encounter Care Teams Financial Administrative Assistant Relationship Specialty Start Date End Date Bere Baldwin MD [address] [place] [phone] PCP - General Internal Medicine 06/19/23 documented as of this encounter
--- OUTSIDE RECORDS SUMMARY | 2024-11-19 13:50 | XMS_ITS | Encounter Summary ---
Author Organization [employer] Address [address] [facility] [address] [place] [address] Care Team Providers Care Boiler Or Engine Operator Name Role Phone Clark Hicks Primary Care Provider Unavail able Bere Baldwin MD Primary Care Provide r Reason for Visit * Reason Onset Date Comments Triage 02/04/2023 Encounter Details Date Type Department Care Team ([facility] st Contact Info) Description 02/04/2023 Telephone [facility] [address] [place], [place] [phone] Clark Hicks AGNP Triage Social History Tobacco Use Types Packs/Day Years [...] Orientation Straight 08/06/2022 10 :15 AM EDT COVID-19 Exposure Response Date Recorded In the last 10 days, have yo u been in contact with someone who was confirmed or suspected to have Coronavirus/COVID-19? No / Unsure 02/04/2023 2:18 PM EDT documented as of this encounter Miscellaneous Notes * Telephone Encounter - Billie Garcia RN - 02/04/2023 11:04 AM EDT Triage call Pt reports cough for 3 weeks. Pt has audible nasal congestion, constant cough, and difficulty breathing. Pt reports uses inhaler 8-10x/day. Pt reports sore throat and hoarse voice. Advised Pt to come to [facility] today and Pt agrees, has to bring child to apt in peds and will come to [facility] to be seen today after that apt. Pt agrees with disposition and home care reviewed. Protocol Used: Cough (Adult) Protocol-Based Disposition: See in Office or Video Visit Today or Tomorrow Video visit not offered Positive Triage Questions: * Continuous (nonstop) coughing interferes with work or school and no improvement using cough treatment per Care Advice * Patient wants to be seen * All higher-acuity triage questions were negative Care Advice Discussed: * Reassurance and Education - Cough * Cough Medicines * Cough Syrup With Dextromethorphan * Cough Syrup With Dextromethorphan - Extra Notes and Warnings * Coughing Spells * Prevent Dehydration * Humidifier * Fever Medicines * Fever Medicines - Extra Notes and Warnings * Expected Course * Reasons To Call Back - Difficulty breathing - Cough lasts more than 3 weeks - Fever lasts more than 3 days - You become worse * Telephone Encounter - Jeremy Jones - 02/04/2023 10:29 AM EDT Symptom: Cough Outcome: Schedule an urgent appointment (within 1 hour) or talk to a nurse or provider soon Reason: Wheezing and trouble breathing. Chest pain, headache ( pressure ) . The caller accepted this outcome Please contact at [phone] documented in this encounter Plan of Treatment Upcoming Encounters Date Type Department Care Team (Late st Contact Info) Description 01/07/2025 3:15 PM EDT Office Visit [facility]INE [address] [place] [phone] Bere Baldwin MD [address] [place] [phone] documented as of this encounter Visit Diagnoses Not on filedocumented in this encounter Care Teams Boiler Or Engine Operator Relationship Specialty Start Date End Date Clark Hicks AGNP PCP - General Family Medicine 07/17/22 06/18/23 Bere Baldwin MD [address] [place] [phone] PCP - General Internal Medicine 06/19/23 documented as of this encounter
--- OUTSIDE RECORDS SUMMARY | 2024-11-19 13:50 | XMS_ITS | Encounter Summary ---
Author Organization [employer] Address [address] [facility] [address] [place] [address] Care Team Providers Care Multi Care Technician Name Role Phone Bere Baldwni MD Primary Care Provide r Reason for Visit * Reason Onset Date Comments Nurse Triage 11/19/2024 Left Chest Pain, SOB, Chills Encounter Details Date Type Department Care Team ([facility] st Contact Info) Description 11/19/2024 Telephone [facility] [address], [place] [phone] Kiesha Thompson DO [address] [place], [place] [phone] Nurse Triage (Left Chest Pain, SOB, Chills) Social History Tobacco Use Types Packs/Day Years Used Date Smoking Tobacco: Never Passive Smoke Exposure: Never Smokeless Tobacco: Never Alcohol Answer Date [...] encounter Miscellaneous Notes * Telephone Encounter - Nereida Lee RN - 11/19/2024 12:14 PM EST Assessment: Patient presents to [facility] c/o left chest pain, SOB with activity/ cough, feeling hot and then having chills since last 11/13/24. Chest pain is constant but fluctuates in intensity, especially with activity (cough, deep breathing, walking, eating). Symptoms are not relieved by anything. Patient has attempted Tylenol 2 times since symptoms startedwith no relief. Additional complaints include stuffy nose and productive cough with yellow mucous. Patient denies cardiac history, reports Cardiac history within her family. VS as follows (if applicable): Temp 98 orally HR 82 regular rate and rhythm Resp 16 no respiratory distress BP 104/72 left Arm; Device: Automatic Cuff Size: large O2 sat 99 % on room air Hgt 5'4 Wgt 177.2 Lung sounds (if applicable) Clear to auscultation bilaterally No Known Allergies Current Outpatient Medications Medication Sig Dispense Refill cholecalciferol VITAMIN D (Vitamin D-3) 50 MCG (1999 UT) capsule TAKE 1 CAPSULE (50 MCG) BY MOUTH IN THE MORNING 90 capsule 0 cyclobenzaprine (Flexeril) 10 MG tablet Take 1 tablet (10 mg) by mouth at bedtime for 10 days. 10 tablet 0 Diclofenac Sodium (Voltaren) 1 % gel Use topical BID 100 g 3 fluticasone (Flonase) 50 MCG/ACT nasal spray SPRAY 1 SPRAY INTO EACH NOSTRIL IN THE MORNING 48 mL 0 levothyroxine (Synthroid) 137 MCG tablet Take 137 mcg by mouth before breakfast. 30 tablet 11 levothyroxine (Synthroid, Levoxyl) 150 MCG tablet TAKE 1 TABLET BY MOUTH EVERY DAY BEFORE [id number] tablet 1 No current facility-administered medications for this visit. Patient Active Problem List Diagnosis Date Noted Preop examination 04/28/2024 Nevus 09/10/2023 Hypothyroidism (acquired) 10/29/2022 Vitamin D deficiency 10/29/2022 Chronic low back pain 09/09/2018 Acroparesthesia (CMS/HCC) 09/09/2018 Obesity 02/05/2017 Depressive disorder 02/05/2017 Plan of care: Report to Dr Thompson Provider evaluation: Yes Patient in triage room awaiting Provider evaluation in the order of arrival. Nereida Lee RN documented in this encounter Plan of Treatment Upcoming Encounters Date Type Department Care Team (Late st Contact Info) Description 01/07/2025 3:15 PM EDT Office Visit [facility] [address], [place] [phone] Bere Baldwin MD [address] [place] [address] documented as of this encounter Visit Diagnoses Not on filedocumented in this encounter Additional Health Concerns Assessment Noted Time PHQ-9 Depression Total Score: 0 10/17/19 24 2:16 PM EST documented as of this encounter Care Teams Multi Care Technician Relationship Specialty Start Date End Date Bere Baldwin MD [address] [place], [place] [phone] PCP - General Internal Medicine 06/19/23 documented as of this encounter
--- OUTSIDE RECORDS SUMMARY | 2024-11-19 13:50 | XMS_ITS | Encounter Summary ---
Author Organization [employer] Address [address] [place] [address] Care Team Providers Care Trouble Clerk Name Role Phone Bere Baldwin MD Primary Care Provide r Reason for Visit * Reason Comments Chest Pain Shortness of Breath Cough Encounter Details Date Type Department Care Team (Late st Contact Info) Description 11/19/2024 1:20 PM EST Office Visit [facility] [address] [place] [address] Acute URI (Primary Dx); Chest pain, unspecified type; Palpitations; Acute cough; Subacute frontal sinusitis Social History Tobacco Use Types Packs/Day Years [...] AM EDT documented as of this encounter Last Filed Vital Signs Vital Sign Reading Time Taken Comments Blood Pressure 104/72 11/19/2024 12:24 PM EST Pulse 82 11/19/2024 12:24 PM EST Temperature 36.7 ??C (98 ??F) 11/19/2024 12:24 PM EST Respiratory Rate 16 11/19/2024 12:24 PM EST Oxygen Saturation 99% 11/19/2024 12:24 PM EST Inhaled Oxygen Concentration - - Weight 80.4 kg (177 lb 3.2 oz) 11/19/2024 12:24 PM EST Height 162.6 cm (5' 4 ) 11/19/2024 12:24 PM EST Body Mass Index 30.42 11/19/2024 12:24 PM EST documented in this encounter Plan of Treatment Upcoming Encounters Date Type Department Care Team (Late st Contact Info) Description 01/07/2025 3:15 PM EDT Office Visit [facility] [address] [place] [address] Bere Baldwin MD [address] [place] [address] Scheduled Orders Name Type Priority Associated Diagnoses Orde r Schedule XR Chest 2 Views Imaging Urgent Acute cough Expected: 11/19/2024, Expires: 11/19/2025 T4, Free Lab Routine Palpitations Expected: 11/19/2024 (Approximate), Expires: 11/19/2025 Lipid Panel, Standard Lab Routine Palpitations Expected: 11/19/2024 (Approximate), Expires: 11/19/2025 TSH Lab Routine Palpitations Expected: 11/19/2024 (Approximate), Expires: 11/19/2025 Vitamin D, 25-Hydroxy, Total, Immunoassay Lab Routine Palpitations Expected: 11/19/2024 (Approximate), Expires: 11/19/2025 Hepatic Function Panel Lab Routine Palpitations Expected: 11/19/2024 (Approximate), Expires: 11/19/2025 Hemoglobin A1c Lab Routine Palpitations Expected: 11/19/2024 (Approximate), Expires: 11/19/2025 CBC Lab Routine Palpitations Expected: 11/19/2024, Expires: 11/19/2025 Basic Metabolic Panel Lab Routine Palpitations Expected: 11/19/2024 (Approximate), Expires: 11/19/2025 documented as of this encounter Procedures Procedure Name Priority Date/Time Associated Diagnosis Comments POCT INFLUENZA B (ID NOW RAPID MOLECULAR) Routine 11/19/2024 1:02 PM EST Acute cough POCT INFLUENZA A (ID NOW RAPID MOLECULAR) Routine 11/19/2024 1:02 PM EST Acute cough POCT RAPID COVID ANTIGEN Routine 11/19/2024 1:02 PM EST Acute cough POCT RAPID STREP A Routine 11/19/2024 1: 02 PM EST Acute cough documented in this encounter Results * Influenza B (ID NOW Rapid Molecular) (11/19/2024 1:02 PM EST) Influenza B Negative Negative, Indeterminate [facility] Swab 11/19/2024 1:02 PM EST Kiesha Thompson DO POINT OF CARE TEST ENTER/RAND T ORDERABLES Final Result [facility] [address] [place] [address] [phone] * Influenza A (ID NOW Rapid Molecular) (11/19/2024 1:02 PM EST) [facility] Influenza A Negative Negative, Indeterminate [facility] Swab 11/19/2024 1:02 PM EST Kiesha Thompson DO POINT OF CARE TEST ENTER/RAND T ORDERABLES Final Result Performing Organization Address [facility] Phone Number [facility] [address] [place] [address] [phone] * POCT rapid strep A manually resulted (11/19/2024 1:02 PM EST) [facility] Rapid Strep A Screen Negative Negative, None Detected [facility] Swab 11/19/2024 1:02 PM EST Kiesha Thompson DO POINT OF CARE TEST ENTER/RAND T ORDERABLES Final Result Performing Organization Address [facility] de Phone Number [facility] [address] [place] [phone] * POCT Rapid COVID Ag (11/19/2024 1:02 PM EST) [facility] Rapid COVID Ag Negative [facility] Swab 11/19/2024 1:02 PM EST Kiesha Thompson DO POINT OF CARE TEST ENTER/RAND T ORDERABLES Final Result Performing Organization Address [facility] de Phone Number [facility] [address] [place] [address] [phone] documented in this encounter Visit Diagnoses Diagnosis Acute URI- Primary Acute upper respiratory infections of unspecified site Chest pain, unspecified type Palpitations Acute cough Subacute frontal sinusitis documented in this encounter Additional Health Concerns Assessment Noted Time PHQ-9 Depression Total Score: 0 10/17/19 24 2:16 PM EST documented as of this encounter Care Teams Trouble Clerk Relationship Specialty Start Date End Date Bere Baldwin MD [address] [place] [address] PCP - General Internal Medicine 06/19/23 documented as of this encounter
--- OUTSIDE RECORDS SUMMARY | 2024-11-19 13:50 | XMS_ITS | Clinical Summary ---
Author Organization [facility] Address [address] [place] [address] Care Team Providers Care Security Monitor Name Role Phone Unavailable Primary Care Provider Unavailabl e Social History Tobacco Use Types Packs/Day Years Used Date Smoking Tobacco: Never Assessed Comments Unknown Sex and Gender Information Value Date Recorded Sex Assigned at Not on file Legal Sex Female 11:40 AM EDT Gender Identity Not on file Sexual Orientation Not on file Plan of Treatment Health Maintenance Due Date Last Done Comments DTaP,Tdap,and Td Vaccines (1 - Tdap) 2013 Hepatitis B Vaccines (1 of 3 - 19+ 3-dose series) 2013 Cervical Cancer Screening: P ap Smear 2015 COVID-19 Vaccine ( - 2023-2 5 season) 2024 Influenza Vaccine (#1) 2024 Depression Screening 07/31/2024 HIV Screening 07/31/2024 Hepatitis C Screening 07/31/2024 Social Influencers of Health Screening 07/31/2024 HIB Vaccines Aged Out No longer eligi ble based on patient's age to complete this topic HPV Vaccines Aged Out No longer eligi ble based on patient's age to complete this topic Hepatitis A Vaccines Aged Out No long er eligible based on patient's age to complete this topic IPV Vaccines Aged Out No longer eligi ble based on patient's age to complete this topic MMR Vaccines Aged Out No longer eligi ble based on patient's age to complete this topic Meningococcal ACWY Vaccine Aged Out N o longer eligible based on patient's age to complete this topic Meningococcal B Vacine Aged Out No lo nger eligible based on patient's age to complete this topic Pneumococcal Vaccine: Pediat rics (0 to 5 Years) and At-Risk Patients (6 to 64 Years) Aged Out No longer eligible b ased on patient's age to complete this topic RSV Immunization Patients Un blas 20 months Aged Out No longer eligible b ased on patient's age to complete this topic Varicella Vaccines Aged Out No longer eligible based on patient's age to complete this topic
--- OUTSIDE RECORDS SUMMARY | 2024-11-19 13:50 | XMS_ITS | Clinical Summary ---
Author Organization [employer] Address [address] [place] [address] Care Team Providers Care Safety Investigator/Cause Analyst Name Role Phone Bere Baldwin MD Primary Care Provide r Allergies No known active allergies Medications levothyroxine (Synthroid) 137 MCG tabletIndicati ons:Hypothyroi dism (acquired) Take 137 mcg by mouth before breakfast. 30 tablet 11 10/17/19 24 Active cholecalcifero l VITAMIN D (Vitamin D-3) 50 MCG (1999) capsuleIndicat ions:Hypothyro idism (acquired) TAKE 1 CAPSULE (50 MCG) BY MOUTH IN THE MORNING 90 capsule 10/02/20 24 Active levothyroxine (Synthroid, Levoxyl) 150 MCG tabletIndicati ons:Hypothyroi dism (acquired) TAKE 1 TABLET BY MOUTH EVERY DAY BEFORE BREAKFAST 90 tablet 1 10/27/19 25 Active loratadine (Claritin) 10 MG tablet Take 1 tablet (10 mg) by mouth Once per day. 30 tablet 3 11/19/19 25 026 Active benzonatate (Tessalon Perles) 100 MG capsule Take 1 capsule (100 mg) by mouth if needed in the morning, at noon, and at bedtime for cough for up to 10 days. Do not crush or chew. 30 capsule 11/19/19 25 025 Active omeprazole OTC (PriLOSEC OTC) 20 MG EC tablet Take 1 tablet (20 mg) by mouth before breakfast. Do not crush, chew, or split. 30 tablet 3 11/19/19 25 026 Active fluticasone (Flonase) 50 MCG/ACT nasal sprayIndicatio ns:Subacute frontal sinusitis Administer 2 sprays into each nostril Once per day. Shake gently. Before first use, prime pump. After use, clean tip and replace cap. 16 mL 3 11/19/19 25 Active Diclofenac Sodium (Voltaren) 1 % gel Apply 2 g topically if needed in the morning, at noon, in the evening, and at bedtime (pain). Use topical BID 150 g 3 11/19/19 25 Active baclofen (Lioresal) 10 MG tablet Take 1 tablet (10 mg) by mouth if needed in the morning, at noon, and at bedtime for muscle spasms. 60 tablet 1 11/19/19 25 025 Active naproxen (Naprosyn) 500 MG tablet Take 1 tablet (500 mg) by mouth if needed in the morning and at bedtime for mild pain. 30 tablet 1 11/19/19 25 026 Active fluticasone (Flonase) 50 MCG/ACT nasal sprayIndicatio ns:Subacute frontal sinusitis SPRAY 1 SPRAY INTO EACH NOSTRIL IN THE MORNING 48 mL 03/19/20 23 025 Discontinued(Re order (will not trigger notification to Pharmacy)) cyclobenzaprin e (Flexeril) 10 MG tablet Take 1 tablet (10 mg) by mouth at bedtime for 10 days. 10 tablet 02/18/20 24 025 Discontinued Diclofenac Sodium (Voltaren) 1 % gel Use topical BID 100 g 3 02/18/20 24 025 Discontinued(Re order (will not trigger notification to Pharmacy)) levothyroxine (Synthroid, Levoxyl) 150 MCG tabletIndicati ons:Hypothyroi dism (acquired) TAKE 1 TABLET BY MOUTH EVERY DAY BEFORE BREAKFAST 90 tablet 07/31/20 24 025 Discontinued Active Problems Problem Noted Date Diagnosed Date Nevus 09/10/2023 Assessment & Plan (09/10/2023 12:14 PM EST): New onset, dark coloration Refer to dermatology for further evaluation Hypothyroidism (acquired) 10/29/2022 Assessment & Plan (10/17/2023 2:53 PM EST): I advise to take her medication every day in the morning with empty stomach an wait at least 30min before eating, I explain to her this is really important I renewed her levothyroxine I will re-check labs Vitamin D deficiency 10/29/2022 Chronic low back pain 09/09/2018 09/09/2023 Acroparesthesia 09/09/2018 09/09/2023 Obesity 02/05/2017 09/09/2023 Depressive disorder 02/05/2017 09/09/2023 Resolved Problems Problem Noted Date Diagnosed Date Resolved Date Preop examination 04/28/2024 11/19/2024 Assessment & Plan (04/28/2024 1:56 PM EDT): RCRI score is 0 which is a 3.9% Surgery should proceed as schedule I instructed NPO after midnight the day of the procedure Labs ordered EKG done at office normal Encounters Date Type Department Care Team Description 11/19/2024 1:20 PM EST Office Visit [facility] [address] [place] [phone] Acute URI (Primary Dx); Chest pain, unspecified type; Palpitations; Acute cough; Subacute frontal sinusitis 11/19/2024 Telephone [facility] [address] [place] [phone] Kiesha Thompson DO Nurse Triage (Left Chest Pain, SOB, Chills) 10/27/2024 Refill [facility] [address] [place] [address] [phone] Bere Baldwin MD Hypothyroidism (acquired) 10/02/2024 Refill [facility] [address] [place] [address] [phone] Bere Baldwin MD Hypothyroidism (acquired) from Last 3 Months Immunizations Name Administration Dates Next Due DTaP 03/29/1999, 6,04/06/1995,1994,1994 HPV 9-Valent 04/30/2017,09/17/2008 HPV, Unspecified 01/05/2010 Hep B, adult 04/13/1995,1994,1994 HiB, unspecified 02/04/1997,04/06/1995, 5 Hib (PRP-T) 03/05/1997,1994 Influenza injectable quadriv alent preservative free 09/09/2018,09/17/2008 MMR 03/29/1999,03/05/1997,02/04/1997 Tdap 04/25/2017 Varicella 09/17/2008,03/01/1998 Social History Tobacco Use Types Packs/Day Years Used Date Smoking Tobacco: Never Passive Smoke Exposure: Never Smokeless Tobacco: Never Tobacco Cessation:Counseling Given: Not Answered Alcohol Answer Date Recorded Frequency of Alcohol [...] Orientation Straight 08/06/2022 10 :15 AM EDT Last Filed Vital Signs Vital Sign Reading [...] Mass Index 30.42 11/19/2024 12:24 PM EST Plan of Treatment Upcoming Encounters Date Type Department Care Team (Late st Contact Info) Description 01/07/2025 3:15 PM EDT Office Visit [facility] [address] [place] [address] Bere Baldwin MD [address] [place] [address] Health Maintenance Due Date Last Done Comments Alcohol/Substance Use Screening 2006 Family Planning (PISQ) 2009 Pap Smear 04/24/2024 04/24/2021 Cervical Cancer Screening 2024 HPV/Cotest 2024 COVID-19 Vaccine ( season) 2024 11/02/2021, 07/12/2021 Influenza Vaccine (#1) 2024 09/09/2018, 2007 Depression Screening 10/17/2024 10/17/2023, 10/17/19 SDOH Screening 10/17/2024 10/17/2023 Tobacco Screening 04/28/2025 04/28/2024 DTaP/Tdap/Td Vaccines (7 - Td or Tdap) 04/25/2027 04/25/2017, 03/29/1999, 01/06/1996, Additional history exists Lipid Panel 10/23/2028 10/23/2023 Zoster Vaccines (1 of 2) 2044 RSV Patients and Patients Aged 60 years or older (1 - 1-dose 75+ series) 2069 Hepatitis B Vaccines Completed 04/13/1995, 1994, 1994 HIB Vaccines Completed 03/05/1997, 10/1996, 04/06/1995, Additional history exists HPV Vaccines Completed 04/30/2017, 0 10/2009, 09/17/2008 HIV Screening Completed 12/05/2021 Hepatitis C Screening Completed 11/15/2022, 022 Hepatitis A Vaccines Aged Out No long er eligible based on patient's age to complete this topic IPV Vaccines Aged Out No longer eligi ble based on patient's age to complete this topic Meningococcal Vaccine Aged Out No luis daniel tadeo eligible based on patient's age to complete this topic Pneumococcal Vaccine: Pediatrics (0 to 5 Years) and At-Risk Patients (6 to 49) Years) Aged Out No longer eligible based on patient's age to complete this topic RSV under 20 months Aged Out No longe r eligible based on patient's age to complete this topic Rotavirus Vaccines Aged Out No longer eligible based on patient's age to complete this topic Procedures Procedure Name Priority Date/Time Associated Diagnosis Comments POCT INFLUENZA B (ID NOW RAPID MOLECULAR) Routine 11/19/2024 1:02 PM EST Acute cough POCT INFLUENZA A (ID NOW RAPID MOLECULAR) Routine 11/19/2024 1:02 PM EST Acute cough POCT RAPID STREP A Routine 11/19/2024 1: 02 PM EST Acute cough POCT RAPID COVID ANTIGEN Routine 11/19/2024 1:02 PM EST Acute cough LIPID PANEL, STANDARD Routine 10/23/2023 10:10 AM EST Hypothyroidism (acquired) HEPATITIS PANEL, GENERAL Routine 11/15/2022 9:46 AM EST [facility] HISTORICAL HEPATITIS B SURFACE ANTIGEN* Routine 12/05/2021 11:56 AM EST HM PAP/HPV Routine 04/24/2021 from Last 3 Months or Most Recently Relevant to Health Maintenance Results * Influenza B (ID NOW Rapid Molecular) (11/19/2024 1:02 PM EST) [facility] Influenza B Negative Negative, Indeterminate [facility] Swab 11/19/2024 1:02 PM EST Kiesha Thompson DO POINT OF CARE TEST ENTER/RAND T ORDERABLES Final Result Performing Organization Address [facility]/ZIP Co de Phone Number [facility] [address] [place] [address] [phone] * Influenza A (ID NOW Rapid Molecular) (11/19/2024 1:02 PM EST) [facility] Influenza A Negative Negative, Indeterminate [facility] Swab 11/19/2024 1:02 PM EST Kiesha Thompson DO POINT OF CARE TEST ENTER/RAND T ORDERABLES Final Result Performing Organization Address [facility]/ZIP Co de Phone Number [facility] [address] [place] [address] [phone] * POCT Rapid COVID Ag (11/19/2024 1:02 PM EST) [facility] Rapid COVID Ag Negative [facility] Swab 11/19/2024 1:02 PM EST Kiesha Donna DO POINT OF CARE TEST ENTER/RAND T ORDERABLES Final Result Performing Organization Address [facility] Co de Phone Number [facility] [address] [place] [address] [phone] * POCT rapid strep A manually resulted (11/19/2024 1:02 PM EST) [facility] Rapid Strep A Screen Negative Negative, None Detected [facility] Swab 11/19/2024 1:02 PM EST us Kiesha Thompson DO POINT OF CARE TEST ENTER/RAND T ORDERABLES Final Result Performing Organization Address [facility] Co de Phone Number [facility] [address] [place] [phone] * (ABNORMAL) Lipid Panel, Standard (10/23/2023 10:10 AM EST) Triglycerides 54 <150 mg/dL [facility] Comment:Desirable Triglyceri de: less than 150 mg/dLBorderline High Triglyceride 150-199 mg/dLHigh Triglyceride: 200-499 mg/dLVery High Triglyceride: greater than or equal to 5OO mg/dL Cholesterol 167 <200 mg/dL [facility] Comment:Desirable Cholestero l: less than 200 mg/dLBorderline High Cholesterol: 200-239 mg/dLHigh Cholesterol: greater than 239 mg/dL LDL Cholesterol Calculated 105(H) <100 mg/dL [facility] Comment:Desirable LDL: less than 100 mg/dLNear Optimal/Above Optimal LDL: 110- 129 mg/dLBorderline High LDL: 130-159 mg/dLHigh LDL: 160-189 mg/dLVery High LDL: greater than or equal to 190 mg/dL HDL Cholesterol 52 >40 mg/dL [facility] Comment:Desirable HDL: great er than 40 mg/dL Note: This HDL assay may give artificially low results in patients with liver disease. Blood Venous blood specimen / Unknown 10/23/2023 10:10 AM EST 10/23/2023 11:24 AM EST us Bere Black MD LAB BLOOD ORDERABLES Final Result Performing Organization Address City/[facility]/ZIP Co de Phone Number [facility] [address] [place] [address] [phone] * Hepatitis Panel, General (11/15/2022 9:46 AM EST) Hepatitis A IgM Nonreactive Nonreactive [facility] Comment:IgM antibodies to BOUCHER V not detected; does not exclude earlyacute or recovered HAV infection. ~Hepatitis B Surface Antibody NONREACTIVE Nonreactive [facility] Comment:Nonreactive: < 8.00 mIU/mL Hepatitis B Core Antibody Nonreactive Nonreactive [facility] Hepatitis C Antibody Nonreactive Nonreactive [facility] Comment:Antibodies to HCV no t detected; does not exclude early acuteHCV infection. Hepatitis B Surface Ag Negative Negative [facility] 11/15/2022 9:46 AM EST 11/15/2022 9:46 AM EST [facility] External Provider LAB BLO OD ORDERABLES Final Result Performing Organization Address [facility] Co de Phone Number [facility] [address] [place] [phone] * HEPATITIS B SURFACE ANTIGEN* (12/05/2021 11:56 AM EST) [facility] Hepatitis B Surface Antigen Negative Negative [facility] Hepatitis C Antibody Nonreactive Nonreactive [facility] Comment: Antibodies to HCV not detected; does not exclude early acute HCV infection. HIV AB/AG Nonreactive Nonreactive [facility] Comment: HIV-1 p24 Ag and/or HIV-1/HIV-2 Ab not detected. ?? A test result that is nonreactive does not exclude the possibility of exposure to or infection with HIV-1 and/or HIV-2. Nonreactive results in this assay for individuals with prior exposure to HIV-1 and/or HIV-2 may be due to antigen and antibody levels that are below the limit of detection of this assay. ?? The [employer] HIV Ag/Ab Combo assay result and supplemental assay results should be interpreted in conjunction with the patient's clinical presentation, history and other laboratory results. ??If the results are inconsistent with clinical evidence, additional testing is suggested to confirm the result. 12/05/2021 11:5 6 AM EST Ines Wilkins HISTORICAL/NON ORDERABLE LABS Fi nal Result Performing Organization Address City/[facility]/ZIP Co de Phone Number [facility] [address] [place] [address], [place] * Pap Smear (04/24/2021) Pap Negative for intraephithelial lesion or malignancy Negative for intraephithelial lesion or malignancy, Other us Historical Provider HEALTH MAINTENANCE Final Result from Last 3 Months or Most Recently Relevant to Health Maintenance Insurance Quid C3 Care Teams Safety Investigator/Cause Analyst Relationship Specialty Start Date End Date Bere Baldwin MD [address] [place] [phone] PCP - General Internal Medicine 06/19/23
--- OUTSIDE RECORDS SUMMARY | 2024-11-19 13:50 | XMS_ITS | Encounter Summary ---
Author Organization [employer] Address [address] [facility] [address]t [place] [address] Care Team Providers Care Pharmaceutical Physician Name Role Phone Bere Baldwin MD Primary Care Provide r Reason for Visit * Reason Comments Med Refill Encounter Details Date Type Department Care Team ([facility] st Contact Info) Description 10/27/2024 Refill [facility] [address] [place], [place] [phone] Bere Baldwin MD [address] [place], [place] [phone] Hypothyroidism (acquired) Social History Tobacco Use Types Packs/Day Years [...] AM EDT documented as of this encounter Plan of Treatment Upcoming Encounters Date Type Department Care Team (Late st Contact Info) Description 01/07/2025 3:15 PM EDT Office Visit [facility] [address] [place] [phone] Bere Baldwin MD [address] [place] [address] documented as of this encounter Visit Diagnoses Diagnosis Hypothyroidism (acquired) Unspecified hypothyroidism documented in this encounter Additional Health Concerns Assessment Noted Time PHQ-9 Depression Total Score: 0 10/17/19 24 2:16 PM EST documented as of this encounter Care Teams Pharmaceutical Physician Relationship Specialty Start Date End Date Bere Baldwin MD [address] [place] [phone] PCP - General Internal Medicine 06/19/23 documented as of this encounter
== END 2024-11-19 13:46 | disposition home or self-care (01) ==
LOC: HO.HHCX 13:45
PROVIDERS: Visit Provider Family Medicine
DX: R05.1 Acute cough (principal)
CPT/HCPCS: 71046

== ENCOUNTER → 2024-11-19 13:46 | Outpatient (BNV) | payer MEDICAID, SELFPAY | PROVIDERS: Visit Provider Radiology Diagnostic Radiology | DX: R05.9 Cough, unspecified (principal); R07.9 Chest pain, unspecified | CPT/HCPCS: 71046 ==

== ENCOUNTER 2024-11-19 14:03 | Outpatient (REF) | payer MEDICAID, SELFPAY ==
[2024-11-19 16:16] LABS: Estimated Average Glucose 103 mg/dL; Hemoglobin A1C 110.1461 umol/L; Hemoglobin A1c % 5.2 % (<6.0); Total Hemoglobin (HGBA1C) 3346.6698 umol/L
[2024-11-19 16:18] LABS: Hemoglobin 12.9 g/dl (12.0-16.0); Mean Corpuscular HGB Conc 32.3 g/dl (31.0-35.0); Mean Corpuscular Volume 80.6 fL (80.0-98.0); Mean Platelet Volume 13.3 fL (9.4-12.3); Platelet Count 173 X10*3/uL (160-400); Red Blood Count 4.96 X10*6/uL (4.20-5.50); Red Cell Distribution Width 13.9 % (11.0-16.0); White Blood Count 6.7 X10*3/uL (4.8-10.8)
[2024-11-19 16:40] LABS: Alanine Aminotransferase 14 U/L (0-31); Albumin Level 4.4 g/dL (3.5-5.0); Alkaline Phosphatase 64 U/L (39-117); Anion Gap 15 (12-20); Aspartate Amino Transferase 24 U/L (5-31); Bilirubin Direct 0.2 mg/dL (0.0-0.5); Bilirubin Total 0.5 mg/dL (0.0-1.0); Blood Urea Nitrogen 11 mg/dL (9-16); Calcium 9.5 mg/dL (8.4-10.2); Carbon Dioxide 21 mmol/L (22-29); Chloride 107 mmol/L (96-108); Cholesterol 151 mg/dL (<200); Estimated Glomerular Filt Rate > 60; Glucose Random 83 mg/dL (60-115); HDL Cholesterol 34 mg/dL (>40); LDL Cholesterol Calculated 104 mg/dL (<100); Potassium 3.8 mmol/L (3.3-5.1); Sodium 139 mmol/L (135-145); Total Protein 8.1 g/dL (6.5-8.0); Triglycerides 69 mg/dL (<150)
[2024-11-19 16:50] LABS: Free T4 (Free Thyroxine) 1.21 ng/dL (0.71-1.85); Thyroid Stimulating Hormone 2.66 uIU/mL (0.32-4.0); Vitamin D 25-OH Total 31.6 ng/mL (>30)
== END 2024-11-19 14:04 | disposition home or self-care (01) ==
LOC: HO.HHCL 14:03
PROVIDERS: Visit Provider Family Medicine
DX: R00.2 Palpitations (principal)
CPT/HCPCS: 36415; 80048; 80061; 80076; 82306; 83036; 84439; 84443; 85027

== ENCOUNTER 2025-07-06 14:16 | Outpatient (REF) | payer MEDICAID, SELFPAY ==
--- OUTSIDE RECORDS SUMMARY | 2025-07-06 13:45 | XMS_ITS | Encounter Summary ---
Author Organization [employer] Address [address] [facility] [address] [place] [address] Care Team Providers Care Abrasive Wheel Molder Name Role Phone Bere Baldwin MD Primary Care Provide r Reason for Visit * Reason Comments Pre-op Exam Encounter Details Date Type Department Care Team ([facility] Contact Info) Description 07/06/2025 1:45 PM EDT Office Visit [facility] [address], [place] [phone] Pako Armando, TIE MILL OPERATOR [address] [place] [address] Pre-op evaluation (Primary Dx) Social History Tobacco Use Types Packs/Day Years Used Date Smoking Tobacco: Never Passive Smoke Exposure: Never Smokeless Tobacco: Never Alcohol Use Standard Drinks/Week Comments Never 0 (1 standard drink = 0.6 oz pur e alcohol) Alcohol Answer Date Recorded Frequency of Alcohol Consumption Not on file 10/17/2023 Average Number of Drinks Not on file 024 Frequency of Binge Drinking Not on file 10/07 Score 0 10/17/2023 Depression Answer Date Recorded Patient Health Questionnaire-9 Score 0 01/07/2025 Patient Health Questionnaire-9 Score 0 01/07/2025 Last PHQ-9: Questionnaire Data Not on file 0 01/07/2025 Housing Stability Answer Date Recorded What is your housing situation today? I have linda villalobos 01/07/[address] you li ve. Do you have problems with any of the following? None of the above 01/07/2025 Food Insecurity Answer Date Recorded Within the past 12 months, y ou worried that your food would run out before you got money to buy more: Never True 01/07/2025 Within the past 12 months,th e food you bought just didn't last and you didn't have enough money to get more: Never True 12/2024 Transportation Answer Date Recorded In the past 12 months, has l ack of transportation kept you from medical appts, meetings, work or from getting things needed for daily living? No 01/07/2025 Utilities Answer Date Recorded In the past 12 months, has t he electric, gas, oil or water company threatened to shut off services in your home? No 01/07/2025 Depression Answer Date Recorded Patient Health Questionnaire-2 Score 0 01/07/2025 Internet Access Answer Date Recorded Internet Access Q1 Yes 01/07/2025 Internet Access Q2 Not on file 01/07/2025 Comments Unknown Sex and Gender Information Value Date Recorded Sex Assigned at Female 08/06/2022 10:15 AM EDT Legal Sex Female 10:15 AM EDT Gender Identity Female 08/06/2022 10:15 AM EDT Sexual Orientation Straight 08/06/2022 10 :15 AM EDT documented as of this encounter Last Filed Vital Signs Vital Sign Reading Time Taken Comments Blood Pressure 98/62 07/06/2025 1:52 PM EDT Pulse 78 07/06/2025 1:52 PM EDT Temperature 36.8 C (98.2 F) 07/06/2025 1:52 PM EDT Respiratory Rate 16 07/06/2025 1:52 PM EDT Oxygen Saturation 100% 07/06/2025 1:52 PM EDT Inhaled Oxygen Concentration - - Weight 78.5 kg (173 lb) 07/06/2025 1:52 PM EDT Height 162.6 cm (5' 4 ) 07/06/2025 1:52 PM EDT Body Mass Index 29.7 07/06/2025 1:52 PM EDT documented in this encounter Progress Notes * Pako Armando CNP - 07/06/2025 1:45 PM EDT Jazlyn Shah is a 30 y.o. female with PMH Hypothyroidism that has resolved (11/2024), Obesity, and depression of who presents to the office for a preoperative evaluation. Denies recent illness, injury, or hospitalization. Denies taking any current meds. Date of Surgery: 08/19/25 Surgical procedure being done: Lypo 260 w/ BBL Type of anesthesia: N/A Lab needed: Yes EKG: No Surgeon's name: Dr. Brandon Man Facility name: [facility] Surgeon's office number: [phone] Surgeon's office fax number: [phone] Recent labs completed 11/2024 were stable including BMP, CBC, A1c, TSH, vitamin D, lipid panel Chronic Medical Conditions: Problem List[1] Allergies: Allergies[2] Review of Systems Denies personal or family history of bleeding diathesis or life-threatening anesthetic reactions Denies kidney disease, thyroid disease, liver disease, asthma, or diabetes. Denies history of stroke. Denies problems with pain, stiffness, or arthritis in neck or jaw. Denies history of sleep apnea, loud snoring, or waking from sleep choking or gasping. Denies allergy to tape, iodine, or latex Able to walk up a flight of stairs or run across a street without needing to stop to catch breath No known cardiac history, denies history of irregular heartbeat No history of alcohol withdrawal; not a regular, heavy drinker. Nonsmoker OBJECTIVE Visit Vitals BP 98/62 (BP Location: Left arm, Patient Position: Sitting, BP Cuff Size: Large adult) Pulse 78 Temp 98.2 ??F (36.8 ??C) (Oral) Resp 16 Ht 5' 4 (1.626 m) Wt 173 lb (78.5 kg) SpO2 100% BMI 29.70 kg/m?? Smoking Status Never BSA 1.88 m?? Physical Exam Constitutional: Appearance: Normal appearance. She is normal weight. HENT: Head: Normocephalic and atraumatic. Eyes: Extraocular Movements: Extraocular movements intact. Pupils: Pupils are equal, round, and reactive to light. Cardiovascular: Rate and Rhythm: Normal rate and regular rhythm. Pulses: Normal pulses. Heart sounds: Normal heart sounds. No murmur heard. No friction rub. No gallop. Pulmonary: Effort: Pulmonary effort is normal. No respiratory distress. Breath sounds: Normal breath sounds. No wheezing or rales. Musculoskeletal: Cervical back: Neck supple. No tenderness. Right lower leg: No edema. Left lower leg: No edema. Lymphadenopathy: Cervical: No cervical adenopathy. Neurological: General: No focal deficit present. Mental Status: She is alert and oriented to person, place, and time. Psychiatric: Mood and Affect: Mood normal. Behavior: Behavior normal. Thought Content: Thought content normal. Judgment: Judgment normal. Problem List Items Addressed This Visit None Visit Diagnoses Pre-op evaluation - Primary Relevant Orders CBC auto differential Comprehensive Metabolic Panel Prothrombin Time-INR Partial Thromboplastin Time, Activated (APTT) hCG, Total, Quantitative HIV-1/2 Antigen and Antibodies, Fourth Generation, with Reflexes Hepatitis C Antibody with Reflex to HCV, RNA, Quantitative, Real-Time PCR PREOPERATIVE ASSESSMENT AND PLAN: -H&P completed -Medication list reviewed with patient and up to date. -The incidence of perioperative cardiovascular events varies according to the patient risk profile,patient's functional capacity, and risk of the proposed surgery. Active cardiac conditions that are contraindications to elective surgery: none, pt has no established CVD or risk factors Surgery-Specific Cardiac Risk: low Cardiac risk by patient profile (RCRI): Patient has 0 risk factors corresponding to 3.9% risk of a major cardiac event during surgery. Functional capacity = 10 METS. The patient reports being able to walk up 1 one flight of stairs and2 blocks without stopping. This patient is at low risk for an high risk procedure. The patient is at acceptable risk for the proposed procedure. Reviewed with patient that no surgery is completely free of risk and this evaluation is to assist surgeon in accurately reviewing informed consent. Medications Ordered Prior to Encounter[3] [1] Patient Active Problem List Diagnosis Hypothyroidism (acquired) Vitamin D deficiency Obesity Depressive disorder Chronic low back pain Acroparesthesia (CMS/HCC) Nevus Encounter for screening for cervical cancer Screening examination for STI Class 2 obesity [2] No Known Allergies [3] Current Outpatient Medications on File Prior to Visit Medication Sig Dispense Refill acetaminophen (Tylenol) 500 MG tablet take 2 tablet by oral route every 8 hours as needed for headache not to exceed 6 tablets per 24hrs Docusate Sodium (DSS) 100 MG capsule See Instructions, TAKE 1 CAPSULE BY MOUTH TWICE A DAY, # 60 capsule, 0 Refills, Maintenance, 03/19/23 15:51:00 EDT, [id number], 165, cm, 04/07/22 7:42:00 EDT, Height, 88.4, kg, 04/11/22 22:02:00 EDT, Dry Weight GIOVANY FERROUS SULFATE PO Refills 0, Maintenance, 02/11/22 0:25:00 EDT, Partial fill upon patient request if the prescription is for a schedule II opioid drug. ibuprofen 600 MG tablet Take 1 tablet by mouth every 8 (eight) hours. ibuprofen 800 MG tablet See Instructions, TAKE 1/2-1 TABLET BY MOUTH EVERY 8 HOURS NEEDED FOR PAIN, # 60 tablet, Refills 0, Maintenance, 03/19/23 15:51:00 EDT, Instructions Replace Required Details, Route to Pharmacy Electronically, [id number], 165, cm, 04/07/22 7:42... oxyCODONE (Roxicodone) 5 MG immediate release tablet Take 5 mg by mouth. Pediatric Multivitamins-Fl (MultiVitamin + Fluoride) 0.25 MG chewable tablet Daily, 0 Refills, Maintenance, 01/05/19 15:13:47 EDT simethicone (Mylicon) 80 MG chewable tablet Chew 80 mg. No current facility-administered medications on file prior to visit. documented in this encounter Plan of Treatment Scheduled Orders Name Type Priority Associated Diagnoses Orde r Schedule CBC auto differential Lab Routine Pre-op evaluation Expected: 07/06/2025 (Approximate), Expires: 07/06/2026 Comprehensive Metabolic Panel Lab Routine Pre-op evaluation Expected: 07/06/2025 (Approximate), Expires: 07/06/2026 Prothrombin Time-INR Lab Routine Pre-op evaluation Expected: 07/06/2025, Expires: 07/06/2026 Partial Thromboplastin Time, Activated (APTT) Lab Routine Pre-op evaluation Expected: 07/06/2025, Expires: 07/06/2026 hCG, Total, Quantitative Lab Routine Pre-op evaluation Expected: 07/06/2025 (Approximate), Expires: 07/06/2026 HIV-1/2 Antigen and Antibodies, Fourth Generation, with Reflexes Lab Routine Pre-op evaluation Expected: 07/06/2025 (Approximate), Expires: 07/06/2026 Hepatitis C Antibody with Reflex to HCV, RNA, Quantitative, Real-Time PCR Lab Routine Pre-op evaluation Expected: 07/06/2025, Expires: 07/06/2026 documented as of this encounter Visit Diagnoses Diagnosis Pre-op evaluation- Primary documented in this encounter Additional Health Concerns Assessment Noted Time PHQ-9 Depression Total Score: 0 01/08/20 25 3:15 PM EDT documented as of this encounter Care Teams Abrasive Wheel Molder Relationship Specialty Start Date End Date Bere Baldwin MD [address] [place] [address] PCP - General Internal Medicine 06/19/23 documented as of this encounter
--- OUTSIDE RECORDS SUMMARY | 2025-07-06 15:39 | XMS_ITS | Clinical Summary ---
Author Organization [employer] [employer] [facility] ity Address [address] [place] [address] Care Team Providers Care Spa Receptionist Name Role Phone Unavailable Primary Care Provider [...] Cervical Cancer Screening: P ap Smear 2015 HPV Vaccines (1 - 3-dose SCD M series) 2021 HIV Screening 07/31/2024 Hepatitis C Screening 07/31/2024 Social Influencers of Health Screening 07/31/2024 Depression Screening 10/07/2024 COVID-19 Vaccine (1 - 2023-2 5 season) 2025 Influenza Vaccine (#1) 2025 RSV Immunization Adult Patie nts (1 - 1-dose 75+ series) 2069 HIB Vaccines Aged Out No longer eligi [...] age to complete this topic Meningococcal B Vaccine Aged Out No l onger eligible based on patient's age to complete this topic Pneumococcal Vaccine: Pediat rics (0 to 5 Years) and At-Risk Patients (6 to 49 Years) Aged Out No longer eligible b ased on patient's age to complete this topic RSV Immunization Patients Un blas 20 months Aged Out No longer eligible b ased on patient's age to complete this topic Varicella Vaccines Aged Out No longer eligible based on patient's age to complete this topic
--- OUTSIDE RECORDS SUMMARY | 2025-07-06 15:39 | XMS_ITS | Clinical Summary ---
Author Organization [employer] Address [address] [facility] [address] [place] [address] Care Team Providers Care Metal Reed Tuner Name Role Phone Bere Baldwin MD Primary Care Provide r Allergies No known active allergies Medications GIOVANY FERROUS SULFATE PO Refills 0, Maintenance, 02/11/22 0:25:00 EDT, Partial fill upon patient request if the prescription is for a schedule II opioid drug. 02/12/20 22 025 Discontinued simethicone (Mylicon) 80 MG chewable tablet Chew 80 mg. 04/06/20 22 025 Discontinued oxyCODONE (Roxicodone) 5 MG immediate release tablet Take 5 mg by mouth. 04/06/20 22 025 Discontinued ibuprofen 800 MG tablet See Instructions, TAKE 1/2-1 TABLET BY MOUTH EVERY 8 HOURS NEEDED FOR PAIN, # 60 tablet, Refills 0, Maintenance, 03/19/23 15:51:00 EDT, Instructions Replace Required Details, Route to Pharmacy Electronically, [id number], 165, cm, 04/07/22 7:42... 04/06/20 22 025 Discontinued ibuprofen 600 MG tablet Take 1 tablet by mouth every 8 (eight) hours. 03/23/20 22 025 Discontinued Docusate Sodium (DSS) 100 MG capsule See Instructions, TAKE 1 CAPSULE BY MOUTH TWICE A DAY, # 60 capsule, 0 Refills, Maintenance, 03/19/23 15:51:00 EDT, [id number], 165, cm, 04/07/22 7:42:00 EDT, Height, 88.4, kg, 04/11/22 22:02:00 EDT, Dry Weight 04/06/20 22 025 Discontinued acetaminophen (Tylenol) 500 MG tablet take 2 tablet by oral route every 8 hours as needed for headache not to exceed 6 tablets per 24hrs 02/06/20 17 025 Discontinued Pediatric Multivitamins- Fl (MultiVitamin + Fluoride) 0.25 MG chewable tablet Daily, 0 Refills, Maintenance, 01/05/19 15:13:47 EDT 01/06/20 19 025 Discontinued Active Problems Problem Noted Date Diagnosed Date Class 2 obesity 07/06/2025 Encounter for screening for cervical cancer 12/2024 Screening examination for STI 01/07/2025 Nevus 09/10/2023 Assessment & Plan (09/10/2023 12:14 PM EST): New onset, dark coloration Refer to dermatology for further evaluation Hypothyroidism (acquired) 10/29/2022 Assessment & Plan (01/07/2025 4:30 PM EDT): I discontinue for now her levothyroxine, I let her know we will continue to monitor her TSH Return to clinic in 6 months Assessment & Plan (10/17/2023 2:53 PM EST): [...] Encounters Date Type Department Care Team Description 07/06/2025 1:45 PM EDT Office Visit [facility] & [facility] [address] [place] [address] Pako Armando CNP Pre-op evaluation (Primary Dx) 07/06/2025 Travel 07/06/2025 Telephone [facility] [address] [place] [address] Bere Baldwin MD chart prep 06/15/2025 Telephone [facility] [address] [place] [address] Bere Baldwin MD Pre Op 05/04/2025 Telephone [facility] [address] [place], [place] [phone] Bere Baldwin MD OCT RECALL from Last 3 Months Immunizations Immunization Administration Dates Next Due DTaP 03/29/1999, 6,04/06/1995,1994,1994 HPV 9-Valent 04/30/2017,09/17/2008 HPV, Unspecified 01/05/2010 Hep B, adult 04/13/1995,1994,1994 HiB, unspecified 02/04/1997,04/06/1995, 5 Hib (PRP-T) 03/05/1997,1994 Influenza injectable quadriv alent preservative free 09/09/2018,09/17/2008 MMR 03/29/1999,03/05/1997,02/04/1997 Tdap 04/25/2017 Varicella 09/17/2008,03/01/1998 Social History Tobacco Use Types Packs/Day Years Used Date Smoking Tobacco: Never Passive Smoke Exposure: Never Smokeless Tobacco: Never Tobacco Cessation:Counseling Given: Not Answered Alcohol Use Standard Drinks/Week Comments Never 0 [...] Mass Index 29.7 07/06/2025 1:52 PM EDT Plan of Treatment Health Maintenance Due Date Last Done Comments Family Planning (PISQ) 2009 Cervical Cancer Screening 04/24/2024 HPV/Cotest 04/24/2024 Pap Smear 04/24/2024 04/24/2021 COVID-19 Vaccine ( season) 2025 11/02/2021, 07/12/2021 Influenza Vaccine (#1) 2025 09/09/2018, 2007 Alcohol/Substance Use Screening 01/07/2026 01/07/2025 Depression Screening 01/07/2026 01/07/2025, 01/08/20 Disability Screening 01/07/2026 01/07/2025 SDOH Screening 01/07/2026 01/07/2025 Tobacco Screening 07/06/2026 07/06/2025 DTaP/Tdap/Td Vaccines (7 - Td or Tdap) 04/25/2027 04/25/2017, 03/29/1999, 01/06/1996, Additional history exists Lipid Panel 11/19/2029 11/19/2024, 10/23/2023 Zoster Vaccines (1 of 2) 2044 [...] Meningococcal Vaccine Aged Out No luis daniel tadoe eligible based on patient's age to complete this topic Pneumococcal Vaccine: Pediatrics (0 to 5 Years) and At-Risk Patients (6 to 49) Years Aged Out No longer eligible based on patient's age to complete this topic RSV under 20 months Aged Out No longe r eligible based on patient's age to complete this topic Rotavirus Vaccines Aged Out No longer eligible based on patient's age to complete this topic Procedures Procedure Name Priority Date/Time Associated Diagnosis Comments LIPID PANEL, STANDARD Routine 11/19/2024 2:06 PM EST Palpitations HEPATITIS PANEL, GENERAL Routine 11/15/2022 9:46 AM EST [facility] HISTORICAL HEPATITIS B SURFACE ANTIGEN* Routine 12/05/2021 11:56 AM EST HM PAP/HPV Routine 04/24/2021 from Last 3 Months or Most Recently Relevant to Health Maintenance Results * (ABNORMAL) Lipid Panel, Standard (11/19/2024 2:06 PM EST) Triglycerides 69 <150 mg/dL [facility] Comment:Desirable Triglyceri de: less than 150 mg/dLBorderline High Triglyceride 150-199 mg/dLHigh Triglyceride: 200-499 mg/dLVery High Triglyceride: greater than or equal to 5OO mg/dL Cholesterol 151 <200 mg/dL [facility] Comment:Desirable Cholestero l: less than 200 mg/dLBorderline High Cholesterol: 200-239 mg/dLHigh Cholesterol: greater than 239 mg/dL LDL Cholesterol Calculated 104(H) <100 mg/dL [facility] Comment:Desirable LDL: less than 100 mg/dLNear Optimal/Above Optimal LDL: 110- 129 mg/dLBorderline High LDL: 130-159 mg/dLHigh LDL: 160-189 mg/dLVery High LDL: greater than or equal to 190 mg/dL HDL Cholesterol 34(L) >40 mg/dL [facility] Comment:Desirable HDL: great er than 40 mg/dL Note: This HDL assay may give artificially low results in patients with liver disease. Blood Venous blood specimen / Unknown 11/19/2024 2:06 PM EST 11/19/2024 4:05 PM EST us Kiesha Jurcsak DO LAB BLOOD ORDERABLES Final R esult Performing Organization Address City/[facility] Co de Phone Number [facility] [address] [place] [address] [phone] * Hepatitis Panel, General (11/15/2022 9:46 AM EST) Hepatitis A IgM Nonreactive Nonreactive [facility] Comment:IgM antibodies to BOUCHER V not detected; does not exclude earlyacute or recovered HAV infection. ~Hepatitis B Surface Antibody NONREACTIVE Nonreactive [facility] Comment:Nonreactive: < 8.00 mIU/mL Hepatitis B Core Antibody Nonreactive Nonreactive [facility] Hepatitis C Antibody Nonreactive Nonreactive [facility] Comment:Antibodies to HCV no t detected; does not exclude early acuteHCV infection. Hepatitis B Surface Ag Negative Negative [facility] 11/15/2022 9:46 AM EST 11/15/2022 9:46 AM EST [facility] External Provider LAB BLO OD ORDERABLES Final Result Performing Organization Address [facility] Co de Phone Number [facility] [address] [place] [address] [phone] * HEPATITIS B SURFACE ANTIGEN* (12/05/2021 11:56 AM EST) [facility] Hepatitis B Surface Antigen Negative Negative [facility] Hepatitis C Antibody Nonreactive Nonreactive [facility] Comment: Antibodies to HCV not detected; does not exclude early acute HCV infection. HIV AB/AG Nonreactive Nonreactive [facility] Comment: HIV-1 p24 Ag and/or HIV-1/HIV-2 Ab not detected. A test result that is nonreactive does not exclude the possibility of exposure to or infection with HIV-1 and/or HIV-2. Nonreactive results in this assay for individuals with prior exposure to HIV-1 and/or HIV-2 may be due to antigen and antibody levels that are below the limit of detection of this assay. The [employer] HIV Ag/Ab Combo assay result and supplemental assay results should be interpreted in conjunction with the patient's clinical presentation, history and other laboratory results. If the results are inconsistent with clinical evidence, additional testing is suggested to confirm the result. 12/05/2021 11:5 6 AM EST Ines Wilkins HISTORICAL/NON ORDERABLE LABS Fi nal Result [facility] [address] * Pap Smear (04/24/2021) Pap Negative for intraephithelial lesion or malignancy Negative for intraephithelial lesion or malignancy, Other Historical Provider HEALTH MAINTENANCE Final Result from Last 3 Months or Most Recently Relevant to Health Maintenance Insurance [employer] C3 Care Teams Metal Reed Tuner Relationship Specialty Start Date End Date Bere Baldwin MD [address] [place] [address] PCP - General Internal Medicine 06/19/23
--- OUTSIDE RECORDS SUMMARY | 2025-07-06 15:39 | XMS_ITS | Encounter Summary ---
Author Organization [employer] Address [address] [facility] [address] [place] [address] Care Team Providers Care Tool And Die Technician Name Role Phone Bere Baldwin MD Primary Care Provide r Reason for Visit * Reason Onset Date Comments chart prep 07/06/2025 Encounter Details Date Type Department Care Team (Late st Contact Info) Description 07/06/2025 Telephone [facility] [address] [place], [place] [phone] Bere Baldwin MD [address] [place] [address] chart prep Social History Tobacco Use Types Packs/Day Years [...] encounter Miscellaneous Notes * Telephone Encounter - Libia Dalton [place] - 07/06/2025 8:06 AM EDT Chart Prep Labs: not applicable Images: not applicable Referrals: not applicable Vaccines due: Covid and Flu Screenings: pap smear Overdue care gaps: Not applicable documented in this encounter Plan of Treatment Not on file documented as of this encounter Visit Diagnoses Not on filedocumented in this encounter Additional Health Concerns Assessment Noted Time PHQ-9 Depression Total Score: 0 01/08/20 25 3:15 PM EDT documented as of this encounter Care Teams Tool And Die Technician Relationship Specialty Start Date End Date Bere Baldwin MD [address] [place] [address] PCP - General Internal Medicine 06/19/23 documented as of this encounter
--- OUTSIDE RECORDS SUMMARY | 2025-07-06 15:39 | XMS_ITS | Encounter Summary ---
Author Organization [email or web address] Address [address] [facility] [address] [place] [address] Care Team Providers Care Residential Property Consultant Name Role Phone Bere Baldwin MD Primary Care Provide r Encounter Details Date Type Department Care Team (Latest Contact Info) Description 07/06/2025 Travel Social History Tobacco Use Types Packs/Day Years [...] as of this encounter Plan of Treatment Not on file documented as of this encounter Visit Diagnoses Not on filedocumented in this encounter Additional Health Concerns Assessment Noted Time PHQ-9 Depression Total Score: 0 01/08/20 25 3:15 PM EDT documented as of this encounter Care Teams Residential Property Consultant Relationship Specialty Start Date End Date Bere Baldwin MD [address] [place] [id number] PCP - General Internal Medicine 06/19/23 documented as of this encounter
[2025-07-06 18:06] LABS: MANUAL DIFF FLAG NO
[2025-07-06 18:15] LABS: Hematocrit 38.8 % (37.0-47.0); Hemoglobin 12.3 g/dl (12.0-16.0); Imm Gran Abs Auto 0.03 X10*3/uL (0.00-0.03); Imm Gran Pct Auto 0.4 % (0.0-0.4); Lymphocytes Absolute Auto 3.1 X10*3/uL (1.2-4.9); Mean Corpuscular HGB Conc 31.7 g/dl (31.0-35.0); Mean Corpuscular Hemoglobin 26.3 pg (27.0-33.0); Mean Corpuscular Volume 82.9 fL (80.0-98.0); NRBC Abs Auto 0.000 X10*3/uL (0.0-0.012); NRBC Pct Auto 0.0 /100WBC (0.0-0.2); Platelet Count 274 X10*3/uL (160-400); Red Blood Count 4.68 X10*6/uL (4.20-5.50); White Blood Count 8.0 X10*3/uL (4.8-10.8)
[2025-07-06 18:19] LABS: INTERNATIONAL NORM RATIO 1.0 (0.9-1.1); Prothrombin Time 11.9 SEC (10.9-12.4)
[2025-07-06 18:22] LABS: Partial Thromboplastin Time 31.9 SEC (26.7-34.1)
[2025-07-06 18:35] LABS: Alanine Aminotransferase 15 U/L (0-31); Albumin Level 4.5 g/dL (3.5-5.0); Alkaline Phosphatase 70 U/L (39-117); Anion Gap 12 (12-20); Aspartate Amino Transferase 21 U/L (5-31); Blood Urea Nitrogen 8 mg/dL (9-16); Calcium 9.3 mg/dL (8.4-10.2); Carbon Dioxide 27 mmol/L (22-29); Chloride 107 mmol/L (96-108); Estimated Glomerular Filt Rate > 60; Potassium 3.7 mmol/L (3.3-5.1); Sodium 142 mmol/L (135-145); Total Protein 7.3 g/dL (6.5-8.0)
[2025-07-07 05:16] LABS: HIV Num 1 0.08 S/CO (0.00-0.99); ~HepC Num1 0.10 S/CO (0.00-0.79); ~Hepatitis C Antibody Nonreactive (Nonreactive)
== END 2025-07-06 14:17 | disposition home or self-care (01) ==
LOC: HO.CHCLDS 14:16
DX: Z01.818 Encounter for other preprocedural examination (principal); Z11.4 Encounter for screening for human immunodeficiency virus [HIV]
CPT/HCPCS: 36415; 80053; 84702; 85025; 85610; 85730; 86803; 87389